=== PATIENT | male | born 1955 | race Caucasian/White ===

== ENCOUNTER 2017-11-28 11:40 | Emergency (ER) | payer MEDICAID ==
[2017-11-28 12:10] LABS: BASOPHILS # (AUTO) 0.1 10^3/uL (0.0-0.1); BASOPHILS % (AUTO) 0.9 %; EOSINOPHILS # (AUTO) 0.3 10^3/uL (0.0-0.7); EOSINOPHILS % (AUTO) 3.6 %; HGB - HEMOGLOBIN 14.3 g/dL (14.0-18.0); LYMPHOCYTES # (AUTO) 1.1 10^3/uL (1.5-3.5); LYMPHOCYTES % (AUTO) 15.2 %; MEAN CORPUSCULAR HGB CONC 33.5 g/dL (32.0-36.0); MEAN CORPUSCULAR VOLUME 83.8 fL (80.0-94.0); MEAN PLATELET VOLUME 7.6 fL (7.4-11.4); MONOCYTES % (AUTO) 13.5 %; NEUTROPHILS # (AUTO) 4.9 10^3/uL (1.5-6.6); NEUTROPHILS % (AUTO) 66.8 %; PLT - PLATELET COUNT 201 10^3/uL (130-450); RED CELL DISTRIBUTION WIDTH 14.4 % (12.0-15.0); WHITE BLOOD COUNT 7.3 x10^3/uL (4.8-10.8)
[2017-11-28] MEDS ORDERED: SODIUM CHLORIDE 0.9% 1,000 ML IV ONE ×3 (12:15→14:19)
[2017-11-28 12:23] LABS: ALBUMIN 4.4 g/dL (3.2-5.5); ALBUMIN/GLOBULIN RATIO 1.5 (1.0-2.2); BILIRUBIN,TOTAL 0.4 mg/dL (0.2-1.0); CALCIUM 9.4 mg/dL (8.5-10.3); CREATININE 0.9 mg/dL (0.6-1.2); TOTAL PROTEIN 7.4 g/dL (6.7-8.2)
[2017-11-28] MEDS ORDERED: IPRATROPIUM/ALBUTEROL 3 ML NEB INH STA (12:56)
--- NOTE | 2017-11-28 13:10 | XRAY Report ---
EXAM: CHEST RADIOGRAPHY EXAM DATE: 11/28/2017 12:47 PM. CLINICAL HISTORY: Soa, dizzy, . COMPARISON: None. TECHNIQUE: 2 views. FINDINGS: Lungs/Pleura: No focal opacities evident. No pleural effusion. No pneumothorax. Normal volumes. Mediastinum: Heart and mediastinal contours are unremarkable. Other: None. IMPRESSION: No focal consolidation. [facility] Referring Provider Line: [phone] SITE ID: [id number]
--- NOTE | 2017-11-28 13:10 | XRAY Preliminary Report ---
Exam: XR CHEST 2 VIEW X-RAY IMPRESSION: No focal consolidation. [facility] SITE ID: [id number]
--- NOTE | 2017-11-28 13:11 | ED Physician Documentation ---
PD HPI URI - Stated complaint Stated Complaint: PASSING OUT/LOW BP - Chief complaint Chief Complaint: Cardiac - History obtained from History obtained from: Patient - History of Present Illness Timing - onset: How many days ago (2) Timing duration: Days (2) Timing details: Gradual onset Pain level max: 0 Pain level now: 0 Associated symptoms: Fever, Chills, Sweats, Nasal congestion, Rhinorrhea, Productive cough (green/yellow), Hemoptysis (mild) Contributing factors: Sick contact Improves by: Rest Worsened by: Activity, Breathing Similar symptoms before: Diagnosis ("walking pneumonia") Recently seen: Not recently seen - Additional information Additional information: Patient states that he has not been sleeping at all for the past 2 nights and feels like he is "passing out". What he actually means is that he is falling asleep frequently during the day over the past 2 days. Feeling very fatigued. He is not actually having syncopal events. Review of Systems Constitutional: reports: Fever, Chills, Fatigue, Sweats Ears: denies: Ear pain Nose: denies: Rhinorrhea / runny nose, Congestion Throat: denies: Sore throat Cardiac: denies: Chest pain / pressure Respiratory: denies: Cough GI: denies: Nausea, Vomiting, Diarrhea : denies: Dysuria Skin: denies: Rash Musculoskeletal: denies: Neck pain, Back pain Neurologic: denies: Focal weakness, Numbness, Headache PD PAST MEDICAL HISTORY - Past Medical History Past Medical History: No - Past Surgical History Past Surgical History: No - Present Medications Home Medications: Ambulatory Orders Medication Instructions Recorded Confirmed Albuterol Sulf [Ventolin Hfa 1 - 2 puffs INH Q4HR PRN #1 inhaler 11/28/17 Inhaler] Hydrocodone/Chlorphen P-Stirex 5 ml PO BID PRN #90 ml 11/28/17 [Hydrocodone-Chlorphen ER Susp] - Allergies Allergies/Adverse Reactions: Allergies Allergy/AdvReac Type Severity Reaction Status Date / Time Penicillins Allergy Unknown Verified 11/28/17 13:06 - Social History Does the pt smoke?: No Smoking Status: Never smoker Does the pt drink ETOH?: No Substance Use and Type: Marijuana PD ED PE NORMAL - Vitals Vital signs reviewed: Yes - General General: Alert and oriented X 3, No acute distress - HEENT HEENT: Ears normal, Pharynx benign, Other (Dry lips and tongue) - Neck Neck: Supple, no meningeal sign - Cardiac Cardiac: RRR - Respiratory Respiratory: No respiratory distress, Other (Diminished breath sounds bilaterally) - Abdomen Abdomen: Soft, Non tender, Non distended - Derm Derm: Warm and dry - Extremities Extremities: No edema, No calf tenderness / cord - Neuro Neuro: Alert and oriented X 3 - Psych Psych: Normal mood, Normal affect Results - Vitals Vitals: Vital Signs - 24 hr 11/28/17 11/28/17 11/28/17 11:42 13:30 15:07 Temperature 36.5 C Heart Rate 91 68 81 Respiratory 18 18 21 Rate Blood Pressure 148/78 H 150/76 H O2 Saturation 98 98 Oxygen O2 Source Room air - EKG (time done) 1202 Rate: Rate (enter#) (74) Rhythm: NSR [place]: Normal Intervals: Normal AR QRS: Normal Ischemia: Normal ST segments Computer interpretation: Agree with computer - Labs Labs: Laboratory Tests 11/28/17 11/28/17 11/28/17 12:06 12:06 12:06 WBC 7.3 RBC 5.10 Hgb 14.3 Hct 42.7 MCV 83.8 MCH 28.0 MCHC 33.5 RDW 14.4 Plt Count 201 MPV 7.6 Neut # 4.9 Lymph # 1.1 L [place] # 1.0 Eos # 0.3 Baso # 0.1 Absolute Nucleated RBC 0.00 Nucleated RBC % 0.0 Sodium 137 Potassium 3.8 Chloride 104 Carbon Dioxide 21 Anion Gap 12.0 BUN 15 Creatinine 0.9 Estimated GFR (MDRD) 86 L Glucose 109 H Calcium 9.4 Total Bilirubin 0.4 AST 25 ALT 17 Alkaline Phosphatase 66 Troponin I < 0.04 Total Protein 7.4 Albumin 4.4 Globulin 3.0 Albumin/Globulin Ratio 1.5 Lipase 17 L Influenza A (Rapid) Influenza B (Rapid) Influenza Types A,B Ag 11/28/17 13:15 WBC RBC Hgb Hct MCV MCH MCHC RDW Plt Count MPV Neut # Lymph # [place] # Eos # Baso # Absolute Nucleated RBC Nucleated RBC % Sodium Potassium Chloride Carbon Dioxide Anion Gap BUN Creatinine Estimated GFR (MDRD) Glucose Calcium Total Bilirubin AST ALT Alkaline Phosphatase Troponin I Total Protein Albumin Globulin Albumin/Globulin Ratio Lipase Influenza A (Rapid) Negative Influenza B (Rapid) Negative Influenza Types A,B Ag - - Rads (name of study) cxr Radiology: Prelim report reviewed, EMP read contemporaneously, See rad report ( No acute disease) PD MEDICAL DECISION MAKING - ED course Complexity details: reviewed results, re-evaluated patient, considered differential, d/w patient ED course: Patient is a 62-year-old male who presents to the emergency department with what appears to be a viral syndrome. Feels better after nebulizer treatment and IV fluids. Ambulating without difficulty. He has not been sleeping well the past few days and so has been having excessive daytime sleepiness. Has not actually had any syncopal events. We will continue supportive care and follow- up with his doctor. He is well-appearing, nontoxic. No acute findings on telemetry or EKG. Patient counseled regarding signs and symptoms for which I believe and urgent re-evaluation would be necessary. Patient with good understanding of and agreement to plan and is comfortable going home at this time This document was made in part using voice recognition software. While efforts are made to proofread this document, sound alike and grammatical errors may occur. Departure - Departure Disposition: 01 Home, Self Care Clinical Impression: Viral syndrome Condition: Good Instructions: ED Viral Syndrome Follow-Up: Nhi Linares ARNP [Primary Care Provider] - Within 1 week (for recheck) Prescriptions: Albuterol Sulf [Ventolin Hfa Inhaler] 1 - 2 puffs INH Q4HR PRN #1 inhaler PRN Reason: Shortness Of Air/Wheezing Hydrocodone/Chlorphen P-Stirex [Hydrocodone-Chlorphen ER Susp] 5 ml PO BID PRN # 90 ml PRN Reason: Cough Comments: Return if you worsen. Drink plenty of fluids and rest. Do not drink alcohol or drive while on narcotic pain medicine. Note that many narcotic pain relievers also contain tylenol/acetaminophen. Please ensure that your total dose of acetaminophen from all sources does not exceed 3 grams (3000mg) per day. You may constipated on this medication, take a stool softener such as "Colace" twice a day while you are on it. Also recommend a hvog-wko-godsann laxative such as senna or MiraLAX any day that you do not have a bowel movement. If you received narcotic pain medication in the emergency department, do not drive or operate machinery for the next 24 hours. Discharge Date/Time: 11/28/17 15:09
[2017-11-28 15:08] VITALS: BP 150/76
== END 2017-11-28 15:09 | disposition home or self-care (01) ==
LOC: ED 11:40
DX: B34.9 Viral infection, unspecified (principal)
CPT/HCPCS: 36415; 71046; 80053; 83690; 84484; 85025; 87275; 87276; 93005; 94640; 96360; 99284

== ENCOUNTER 2018-09-18 13:21 | Emergency (ER) | payer MEDICAID ==
[2018-09-18] MEDS ORDERED: PROPARACAINE 0.5% OPHTH DROPS 15 ML EACHEYE STA (13:34)
--- NOTE | 2018-09-18 13:36 | ED Physician Documentation ---
PD HPI OPHTHO - Stated complaint Stated Complaint: LT EYE PX - Chief complaint Chief Complaint: Heent - History obtained from History obtained from: Patient - History of Present Illness Timing - onset: Other (Either yesterday or a few days ago he thinks something blew up in his eye and he has had increasing pain today without visual deficit.) Similar symptoms before: Other (He has a history of "high eye pressures" although he denies a specific history of glaucoma. He was on drops for this, he does not know which one. He ran out recently. The high eye pressure was actual ly in the right eye, not the left.) Review of Systems Ten Systems: 10 systems reviewed and negative Constitutional: denies: Fever, Chills Eyes: reports: Discharge, Irritation. denies: Loss of vision, Decreased vision, Photophobia Ears: denies: Loss of hearing, Ear pain PD PAST MEDICAL HISTORY - Past Surgical History Past Surgical History: No - Present Medications Home Medications: Ambulatory Orders Medication Instructions Recorded Confirmed Albuterol Sulf [Ventolin Hfa 1 - 2 puffs INH Q4HR PRN #1 inhaler 11/28/17 Inhaler] Hydrocodone/Chlorphen P-Stirex 5 ml PO BID PRN #90 ml 11/28/17 [Hydrocodone-Chlorphen ER Susp] - Allergies Allergies/Adverse Reactions: Allergies Allergy/AdvReac Type Severity Reaction Status Date / Time Penicillins Allergy Unknown Verified 11/28/17 13:06 Tetracyclines Allergy Itching Verified 09/18/18 13:30 - Social History Does the pt smoke?: No Smoking Status: Never smoker Does the pt drink ETOH?: No PD ED PE NORMAL - Vitals Vital signs reviewed: Yes - General General: Alert and oriented X 3, No acute distress - HEENT HEENT: PERRL, EOMI, Other (Conjunctiva is quite red on the left. There is no flurescein uptake, Dennis-Pen on the left is 52.) - Neck Neck: Supple, no meningeal sign, No bony TTP - Cardiac Cardiac: RRR, No murmur - Respiratory Respiratory: No respiratory distress, Clear bilaterally - Abdomen Abdomen: Soft, Non tender - Back Back: No CVA TTP, No spinal TTP - Derm Derm: Normal color, Warm and dry - Extremities Extremities: No edema, No calf tenderness / cord - Neuro Neuro: Alert and oriented X 3, Normal speech - Psych Psych: Normal mood, Normal affect Results - Vitals Vitals: Vital Signs - 24 hr 09/18/18 09/18/18 13:28 15:22 Temperature 36.6 C Heart Rate 75 60 Respiratory 18 16 Rate Blood Pressure 133/75 H 118/71 O2 Saturation 98 98 Oxygen O2 Source Room air - Labs Labs: Laboratory Tests 09/18/18 09/18/18 14:40 14:40 WBC 6.9 RBC 5.28 Hgb 14.8 Hct 44.5 MCV 84.2 MCH 28.0 MCHC 33.3 RDW 14.8 Plt Count 217 MPV 7.7 Neut # (Auto) 3.4 Lymph # (Auto) 2.1 [place] # (Auto) 0.8 Eos # (Auto) 0.5 Baso # (Auto) 0.1 Absolute Nucleated RBC 0.00 Nucleated RBC % 0.0 Sodium 138 Potassium 4.2 Chloride 105 Carbon Dioxide 26 Anion Gap 7.0 BUN 12 Creatinine 0.8 Estimated GFR (MDRD) 98 Glucose 114 H Calcium 8.8 Total Bilirubin 0.4 AST 24 ALT 16 Alkaline Phosphatase 73 Total Protein 7.4 Albumin 4.2 Globulin 3.2 Albumin/Globulin Ratio 1.3 Lipase 40 PD MEDICAL DECISION MAKING - ED course ED course: This is a 63-year-old gentleman who presented with what he thought might be a foreign body in the left eye although there was no clear foreign body exposure. His conjunctiva is beet red and he has a history vaguely of high eye pressures in the right eye that he was on drops for but he does not know what. He has alarmingly high pressures in the left in the left eye and the case was discussed by phone with Dr. Delaney, Ophthalmology at [facility] which is the closest facility with ophthalmology cone cleaner that we could find. His recommendation was to transfer him but prior to transfer we need to start some medications to bring his pressure down. He recommended Cosopt, Brimonidine, and latanoprost, 1 drop each every 5 minutes x3 and then rechecking his pressure. He also recommended 500 mg of p.o. Diamox. If after these interventions his pressure was still greater than 40, then he recommended IV mannitol. He accepts the patient in transfer for a higher level of care. The above interventions were done as recommended, and on recheck at 3:08 PM his pressure in the right eye was 16 and on the left was 20. I called Eul[facility] back, I wonder if the initial readings were erroneous given how big of a drop this was. I did speak with him again and he said although it is unlikely it is possible that that is from the medications and they would still like to see him today. Departure - Departure Disposition: 02 Transfer Acute Care [facility] Clinical Impression: Glaucoma Qualifiers: Glaucoma type: unspecified Laterality: bilateral Qualified Code(s): H40.9 - Unspecified glaucoma Condition: Serious
[2018-09-18] MEDS ORDERED: BRIMONIDINE 0.2% OPHTH DROPS 5 ML LEFTEYE STA (14:24)
[2018-09-18] MEDS ORDERED: LATANOPROST 0.005% OPHTH DROPS LEFTEYE STA (14:24)
[2018-09-18] MEDS ORDERED: DORZOLAMIDE/TIMOLOL OPHTH DROPS LEFTEYE STA (14:27)
[2018-09-18] MEDS ORDERED: acetaZOLAMIDE 250 MG TABLET PO STA (14:28)
[2018-09-18 14:49] LABS: BASOPHILS # (AUTO) 0.1 10^3/uL (0.0-0.1); BASOPHILS % (AUTO) 0.8 %; EOSINOPHILS # (AUTO) 0.5 10^3/uL (0.0-0.7); EOSINOPHILS % (AUTO) 6.7 %; HGB - HEMOGLOBIN 14.8 g/dL (14.0-18.0); LYMPHOCYTES # (AUTO) 2.1 10^3/uL (1.5-3.5); LYMPHOCYTES % (AUTO) 30.8 %; MEAN CORPUSCULAR HGB CONC 33.3 g/dL (32.0-36.0); MEAN CORPUSCULAR VOLUME 84.2 fL (80.0-94.0); MEAN PLATELET VOLUME 7.7 fL (7.4-11.4); MONOCYTES # (AUTO) 0.8 10^3/uL (0.0-1.0); MONOCYTES % (AUTO) 11.9 %; NEUTROPHILS # (AUTO) 3.4 10^3/uL (1.5-6.6); NEUTROPHILS % (AUTO) 49.8 %; PLT - PLATELET COUNT 217 10^3/uL (130-450); RED BLOOD COUNT 5.28 10^6/uL (4.70-6.10); RED CELL DISTRIBUTION WIDTH 14.8 % (12.0-15.0); WHITE BLOOD COUNT 6.9 x10^3/uL (4.8-10.8)
[2018-09-18 14:59] LABS: ALBUMIN 4.2 g/dL (3.2-5.5); ALBUMIN/GLOBULIN RATIO 1.3 (1.0-2.2); BILIRUBIN,TOTAL 0.4 mg/dL (0.2-1.0); CALCIUM 8.8 mg/dL (8.5-10.3); CREATININE 0.8 mg/dL (0.6-1.2); TOTAL PROTEIN 7.4 g/dL (6.7-8.2)
[2018-09-18 15:22] VITALS: BP 118/71
== END 2018-09-18 16:03 | disposition short-term general hospital (02) ==
LOC: ED 13:21
DX: H40.9 Unspecified glaucoma (principal)
CPT/HCPCS: 36415; 80053; 83690; 85025; 99283; 99284; A9270; J3490

== ENCOUNTER 2018-09-18 16:05 | Outpatient (CLI) | payer MEDICAID | END 2018-09-18 16:06 | disposition short-term general hospital (02) | LOC: EMS 16:05 | PROVIDERS: ATTEND Surgery | DX: H57.12 Ocular pain, left eye (principal) | CPT/HCPCS: A0170; A0425; A0428 ==

== ENCOUNTER 2018-10-13 06:29 | Emergency (ER) | payer MEDICAID ==
[2018-10-13 06:47] LABS: BASOPHILS % (AUTO) 0.5 %; EOSINOPHILS # (AUTO) 0.3 10^3/uL (0.0-0.7); EOSINOPHILS % (AUTO) 3.7 %; LYMPHOCYTES # (AUTO) 1.8 10^3/uL (1.5-3.5); LYMPHOCYTES % (AUTO) 19.6 %; MEAN CORPUSCULAR HEMOGLOBIN 27.5 pg (27.0-31.0); MEAN CORPUSCULAR HGB CONC 32.7 g/dL (32.0-36.0); MEAN CORPUSCULAR VOLUME 84.1 fL (80.0-94.0); MEAN PLATELET VOLUME 7.5 fL (7.4-11.4); MONOCYTES # (AUTO) 1.1 10^3/uL (0.0-1.0); MONOCYTES % (AUTO) 11.6 %; NEUTROPHILS # (AUTO) 5.9 10^3/uL (1.5-6.6); NEUTROPHILS % (AUTO) 64.6 %; PLT - PLATELET COUNT 214 10^3/uL (130-450); RED BLOOD COUNT 5.46 10^6/uL (4.70-6.10); RED CELL DISTRIBUTION WIDTH 14.4 % (12.0-15.0); WHITE BLOOD COUNT 9.1 x10^3/uL (4.8-10.8)
[2018-10-13] MEDS ORDERED: KETOROLAC 30 MG/ML VIAL IVP STA (06:54)
--- NOTE | 2018-10-13 06:57 | ED Physician Documentation ---
<Rigo Sebastian - Last Filed: 10/13/18 06:54> PD HPI CHEST PAIN - Stated complaint Stated Complaint: CHEST PX/WEAK - Chief complaint Chief Complaint: Cardiac - History obtained from History obtained from: Patient - History of Present Illness Timing - onset: How many days ago (1 1/2) Timing - onset during: Light activity (denies direct injury) Timing - duration: Days Timing - details: Gradual onset, Waxing and waning Quality: Pressure, Aching, Throbbing, Pain. No: Tearing Location: Right chest Radiation: Back Worsened by: Inspiration, Movement, Palpation (right lateral lower ribs) Associated symptoms: No: Shortness of air, Nausea, Feeling faint / dizzy Similar symptoms before: No diagnosis (had this about a year ago after lifting heavy, and it took awhile to heal. No particular injury with onset this time.) Recently seen: Not recently seen - Additional information Additional information: 63-year-old male previously healthy with a history of glaucoma has developed pain in the chest wall bilaterally on the lower ribs. This began a little more than 1 week ago and has peaked this morning. His pain is bad enough that he is come to the emergency department. He denies any cough congestion or fever he did have some postnasal drainage last week and he is recently been seen for glaucoma and started on drops for the glaucoma. At that time he had a dramatic problem with pressure in the left eye. PD PAST MEDICAL HISTORY - Past Surgical History Past Surgical History: No - Present Medications Home Medications: Ambulatory Orders Medication Instructions Recorded Confirmed Albuterol Sulf [Ventolin Hfa 1 - 2 puffs INH Q4HR PRN #1 inhaler 11/28/17 Inhaler] Hydrocodone/Chlorphen P-Stirex 5 ml PO BID PRN #90 ml 11/28/17 [Hydrocodone-Chlorphen ER Susp] Albuterol Sulf [Ventolin Hfa 1 - 2 puffs INH Q4HR PRN #1 inhaler 10/13/18 Inhaler] Cefdinir 300 mg PO BID #20 capsule 10/13/18 predniSONE [Deltasone] 10 mg PO ONCE #26 tablet 10/13/18 - Allergies Allergies/Adverse Reactions: Allergies Allergy/AdvReac Type Severity Reaction Status Date / Time Penicillins Allergy Unknown Verified 10/13/18 06:34 Tetracyclines Allergy Itching Verified 10/13/18 06:34 - Social History Does the pt smoke?: No Smoking Status: Never smoker Does the pt drink ETOH?: No Results - Vitals Vitals: Vital Signs - 24 hr 10/13/18 10/13/18 10/13/18 06:34 06:44 07:30 Temperature 37.4 C Heart Rate 69 78 68 Respiratory 20 17 18 Rate Blood Pressure 141/88 H 129/94 H 140/87 H O2 Saturation 99 100 97 10/13/18 10/13/18 08:14 08:30 Temperature Heart Rate 64 75 Respiratory 18 18 Rate Blood Pressure 142/80 H O2 Saturation 96 Oxygen O2 Source Room air - Labs Labs: Laboratory Tests 10/13/18 10/13/18 10/13/18 06:40 06:40 06:40 WBC 9.1 RBC 5.46 Hgb 15.0 Hct 45.9 MCV 84.1 MCH 27.5 MCHC 32.7 RDW 14.4 Plt Count 214 MPV 7.5 Neut # (Auto) 5.9 Lymph # (Auto) 1.8 [place] # (Auto) 1.1 H Eos # (Auto) 0.3 Baso # (Auto) 0.0 Absolute Nucleated RBC 0.00 Nucleated RBC % 0.0 Sodium 135 Potassium 3.8 Chloride 103 Carbon Dioxide 22 Anion Gap 10.0 BUN 13 Creatinine 0.8 Estimated GFR (MDRD) 98 Glucose 107 H Calcium 9.4 Total Bilirubin 0.8 AST 24 ALT 17 Alkaline Phosphatase 73 Troponin I < 0.04 B-Natriuretic Peptide Total Protein 7.5 Albumin 4.2 Globulin 3.3 Albumin/Globulin Ratio 1.3 Lipase 94 H 10/13/18 07:18 WBC RBC Hgb Hct MCV MCH MCHC RDW Plt Count MPV Neut # (Auto) Lymph # (Auto) [place] # (Auto) Eos # (Auto) Baso # (Auto) Absolute Nucleated RBC Nucleated RBC % Sodium Potassium Chloride Carbon Dioxide Anion Gap BUN Creatinine Estimated GFR (MDRD) Glucose Calcium Total Bilirubin AST ALT Alkaline Phosphatase Troponin I B-Natriuretic Peptide 22 Total Protein Albumin Globulin Albumin/Globulin Ratio Lipase PD MEDICAL DECISION MAKING - ED course ED course: 63-year-old male with bilateral lower rib pain has some inspiratory and expiratory leg wheezes and I suspect he has some reactive airway disease associated with this. He has minimal inflammation of the right TM and has had an issue previously with otitis times. Here in the emerge department is administered Toradol and dexamethasone as well as a DuoNeb treatment and we will place him on some antibiotic. He has allergy to pcn and he is uncertain if he can take amoxicillin and he is placed on cefdinir. Departure - Departure Disposition: 01 Home, Self Care Clinical Impression: Reactive airway disease Qualifiers: Asthma severity: mild Asthma persistence: intermittent Asthma complication type: with acute exacerbation Qualified Code(s): J45.21 - Mild intermittent asthma with (acute) exacerbation Otitis media Qualifiers: Otitis media type: suppurative Chronicity: acute Laterality: right Recurrence: not specified as recurrent Spontaneous tympanic membrane rupture: without spontaneous rupture Qualified Code(s): H66.001 - Acute suppurative otitis media without spontaneous rupture of ear drum, right ear Condition: Stable Instructions: ED Reactive Airway Disease, ED Otitis Media Acute Adult Follow-Up: Nhi Linares ARNP [Primary Care Provider] - Prescriptions: Albuterol Sulf [Ventolin Hfa Inhaler] 1 - 2 puffs INH Q4HR PRN #1 inhaler PRN Reason: Shortness Of Air/Wheezing Cefdinir 300 mg PO BID #20 capsule predniSONE [Deltasone] 10 mg PO ONCE #26 tablet Forms: Activity restrictions <Rigo Warner - Last Filed: 10/13/18 08:57> PD HPI CHEST PAIN - Additional information Additional information: 63-year-old male previously healthy with a history of glaucoma has developed pain in the chest wall bilaterally on the lower ribs. This began a little more than 1 week ago and has peaked this morning. His pain is bad enough that he is come to the emergency department. He denies any cough congestion or fever he did have some postnasal drainage last week and he is recently been seen for glaucoma and started on drops for the glaucoma. At that time he had a dramatic problem with pressure in the left eye. Review of Systems Constitutional: reports: Fatigue. denies: Fever, Chills Eyes: denies: Decreased vision Ears: denies: Ear pain Nose: reports: Congestion. denies: Rhinorrhea / runny nose Throat: denies: Sore throat Cardiac: reports: Chest pain / pressure. denies: Palpitations, Pedal edema, Calf pain Respiratory: denies: Dyspnea, Cough GI: denies: Abdominal Pain, Nausea, Vomiting : denies: Dysuria, Frequency Musculoskeletal: reports: Back pain. denies: Neck pain, Extremity pain PD ED PE NORMAL - Vitals Vital signs reviewed: Yes (hypertensive ) - General General: Alert and oriented X 3, No acute distress, Well developed/nourished - HEENT HEENT: Atraumatic, PERRL, EOMI, Other (The right TM is inflamed centrally with distortion of the landmarks. The left TM is surgically distorted and does not appear inflamed. The mucous membranes are clear. ) - Neck Neck: Supple, no meningeal sign, No bony TTP - Cardiac Cardiac: RRR, No murmur - Respiratory Respiratory: No respiratory distress, Clear bilaterally, Other (There is tenderness to the lateral chest wall worse on the right. ) - Abdomen Abdomen: Soft, Non tender - Back Back: No CVA TTP, No spinal TTP, Other (tenderness is definately over the ribs and not over the abdomen. 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, No motor deficit, No sensory deficit, Normal speech Eye Opening: Spontaneous Motor: Obeys Commands Verbal: Oriented GCS Score: 15 - Psych Psych: Normal mood, Normal affect Results - Vitals Vitals: Vital Signs - 24 hr 10/13/18 10/13/18 10/13/18 06:34 06:44 07:30 Temperature 37.4 C Heart Rate 69 78 68 Respiratory 20 17 18 Rate Blood Pressure 141/88 H 129/94 H 140/87 H O2 Saturation 99 100 97 10/13/18 10/13/18 08:14 08:30 Temperature Heart Rate 64 75 Respiratory 18 18 Rate Blood Pressure 142/80 H O2 Saturation 96 Oxygen O2 Source Room air - EKG (time done) 0635 Rate: Rate (enter#) (68) Rhythm: NSR Ischemia: Normal ST segments Compare to prior EKG: Unchanged from prior EKG (SPT 11-28-17 no changes ) Computer interpretation: Agree with computer - Labs Labs: Laboratory Tests 10/13/18 10/13/18 10/13/18 06:40 06:40 06:40 WBC 9.1 RBC 5.46 Hgb 15.0 Hct 45.9 MCV 84.1 MCH 27.5 MCHC 32.7 RDW 14.4 Plt Count 214 MPV 7.5 Neut # (Auto) 5.9 Lymph # (Auto) 1.8 [place] # (Auto) 1.1 H Eos # (Auto) 0.3 Baso # (Auto) 0.0 Absolute Nucleated RBC 0.00 Nucleated RBC % 0.0 Sodium 135 Potassium 3.8 Chloride 103 Carbon Dioxide 22 Anion Gap 10.0 BUN 13 Creatinine 0.8 Estimated GFR (MDRD) 98 Glucose 107 H Calcium 9.4 Total Bilirubin 0.8 AST 24 ALT 17 Alkaline Phosphatase 73 Troponin I < 0.04 B-Natriuretic Peptide Total Protein 7.5 Albumin 4.2 Globulin 3.3 Albumin/Globulin Ratio 1.3 Lipase 94 H 10/13/18 07:18 WBC RBC Hgb Hct MCV MCH MCHC RDW Plt Count MPV Neut # (Auto) Lymph # (Auto) [place] # (Auto) Eos # (Auto) Baso # (Auto) Absolute Nucleated RBC Nucleated RBC % Sodium Potassium Chloride Carbon Dioxide Anion Gap BUN Creatinine Estimated GFR (MDRD) Glucose Calcium Total Bilirubin AST ALT Alkaline Phosphatase Troponin I B-Natriuretic Peptide 22 Total Protein Albumin Globulin Albumin/Globulin Ratio Lipase - Rads (name of study) chest 1 view Radiology: Prelim report reviewed (Impression: 1. No evidence for acute cardiopulmonary process), EMP read indepedently, See rad report Procedures - IVC sono (time) 0750 Bedside IVC sono: IVC measures (cm) (1.74), Euvolemia PD MEDICAL DECISION MAKING - ED course Complexity details: reviewed old records, reviewed results, re-evaluated patient, considered differential, d/w patient ED course: 63-year-old male with bilateral lower rib pain has some inspiratory and expiratory leg wheezes and I suspect he has some reactive airway disease associated with this. He has minimal inflammation of the right TM and has had an issue previously with otitis times. Here in the emerge department is administered Toradol and dexamethasone as well as a DuoNeb treatment and we will place him on some antibiotic. He has allergy to pcn and he is uncertain if he can take amoxicillin and he is placed on cefdinir.
[2018-10-13 07:00] LABS: ALBUMIN 4.2 g/dL (3.2-5.5); ALBUMIN/GLOBULIN RATIO 1.3 (1.0-2.2); BILIRUBIN,TOTAL 0.8 mg/dL (0.2-1.0); CALCIUM 9.4 mg/dL (8.5-10.3); CREATININE 0.8 mg/dL (0.6-1.2); TOTAL PROTEIN 7.5 g/dL (6.7-8.2)
--- NOTE | 2018-10-13 07:08 | XRAY Report ---
Reason: chest pain Procedure Date: 10/13/2018 Accession Number: [id number] / [id number] Procedure: XR - Chest 1 View X-Ray CPT Code: 55360 FULL RESULT: EXAM: CHEST RADIOGRAPHY EXAM DATE: 10/13/2018 07:00 AM. CLINICAL HISTORY: Chest pain. COMPARISON: CHEST 2 VIEW 11/28/2017 12:28 PM. TECHNIQUE: 1 view. FINDINGS: Lungs/Pleura: Unchanged linear basilar opacities that likely reflect atelectasis. No other new consolidation seen. No evidence of pleural effusion or pneumothorax. Mediastinum: Stable heart size and mediastinum. 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 IMPRESSION: 1. No evidence for acute cardiopulmonary process. [facility]
[2018-10-13] MEDS ORDERED: DEXAMETHASONE 10 MG/ML VIAL IVP STA (07:45)
[2018-10-13] MEDS ORDERED: IPRATROPIUM/ALBUTEROL 3 ML NEB INH STA (07:54)
[2018-10-13 09:29] VITALS: BP 128/80
== END 2018-10-13 09:30 | disposition home or self-care (01) ==
LOC: ED 06:29
DX: J45.21 Mild intermittent asthma with (acute) exacerbation (principal); H66.001 Acute suppurative otitis media without spontaneous rupture of ear drum, right ear; H40.9 Unspecified glaucoma
CPT/HCPCS: 36415; 71045; 80053; 83690; 83880; 84484; 85025; 93005; 94640; 96374; 96375; 99283; 99284

== ENCOUNTER 2018-11-02 09:51 | Emergency (ER) | payer MEDICAID ==
[2018-11-02 09:59] VITALS: BP 126/83
[2018-11-02] MEDS ORDERED: KETOROLAC 60 MG/2 ML VIAL IM STA (10:45)
--- NOTE | 2018-11-02 10:47 | ED Physician Documentation ---
History of Present Illness - Stated complaint Stated Complaint: NECK PX/NAUSEA UNABLE TO EAT AND DRINK - Chief complaint Chief Complaint: General - History obtained from History obtained from: Patient - History of Present Illness Timing: How many days ago (2) Pain level max: 8 Pain level now: 8 - Additonal information Additional information: 63-year-old male presents to the emergency department with neck pain for the past 2 days. Worse with movement and better with rest. Has been taking aspirin without relief. Had similar symptoms approximately 2 years ago after a neck injury at work. Has not had any fevers. No vomiting. Review of Systems Constitutional: denies: Fever, Chills Eyes: denies: Photophobia Throat: denies: Sore throat Respiratory: denies: Cough GI: denies: Abdominal Pain, Nausea, Vomiting, Diarrhea Skin: denies: Rash Musculoskeletal: denies: Back pain Neurologic: denies: Focal weakness, Numbness, Headache PD PAST MEDICAL HISTORY - Past Medical History Past Medical History: No - Past Surgical History Past Surgical History: No - Present Medications Home Medications: Ambulatory Orders Medication Instructions Recorded Confirmed Hydrocodone/Chlorphen P-Stirex 5 ml PO BID PRN #90 ml 11/28/17 [Hydrocodone-Chlorphen ER Susp] Albuterol Sulf [Ventolin Hfa 1 - 2 puffs INH Q4HR PRN #1 inhaler 10/13/18 Inhaler] Cefdinir 300 mg PO BID #20 capsule 10/13/18 predniSONE [Deltasone] 10 mg PO ONCE #26 tablet 10/13/18 Cyclobenzaprine [Flexeril] 10 mg PO TID PRN #20 tablet 11/02/18 Hydrocodone/Acetaminophen 1 - 2 each PO Q6H PRN #14 tablet 11/02/18 [Hydrocodon-Acetaminophen 5-325] Meloxicam [Mobic] 15 mg PO DAILY PRN #20 tablet 11/02/18 - Allergies Allergies/Adverse Reactions: Allergies Allergy/AdvReac Type Severity Reaction Status Date / Time Penicillins Allergy Unknown Verified 11/02/18 09:59 Tetracyclines Allergy Itching Verified 11/02/18 09:59 - Social History Does the pt smoke?: No Smoking Status: Never smoker Does the pt drink ETOH?: No PD ED PE NORMAL - Vitals Vital signs reviewed: Yes - General General: Alert and oriented X 3, No acute distress, Well developed/nourished, Other (Holding his neck midline, and slight flexion) - HEENT HEENT: PERRL, Ears normal, Moist mucous membranes, Pharynx benign, Other (Paraspinal spasm bilaterally paracervical.) - Neck Neck: No bony TTP, No adenopathy - Cardiac Cardiac: RRR, Strong equal pulses - Respiratory Respiratory: No respiratory distress, Clear bilaterally - Back Back: No spinal TTP - Derm Derm: Warm and dry - Neuro Neuro: Alert and oriented X 3, No motor deficit, No sensory deficit - Psych Psych: Normal mood, Normal affect Results - Vitals Vitals: Vital Signs - 24 hr 11/02/18 09:57 Temperature 37.1 C Heart Rate 76 Respiratory 16 Rate Blood Pressure 126/83 H O2 Saturation 98 Oxygen O2 Source Room air PD MEDICAL DECISION MAKING - ED course Complexity details: considered differential, d/w patient ED course: 63-year-old male with paracervical muscle spasm. No evidence of meningitis. No fevers. No evidence of subarachnoid hemorrhage. Will place on muscle relaxants for home and follow-up with his doctor. Neurologically intact. No bony injury. Patient counseled regarding signs and symptoms for which I believe and urgent re-evaluation would be necessary. Patient with good understanding of and agreement to plan and is comfortable going home at this time This document was made in part using voice recognition software. While efforts are made to proofread this document, sound alike and grammatical errors may occur. Departure - Departure Disposition: 01 Home, Self Care Clinical Impression: Neck muscle spasm Condition: Good Instructions: ED Spasm Neck No Injury Follow-Up: Provider,Other [Primary Care Provider] - Within 1 week Prescriptions: Cyclobenzaprine [Flexeril] 10 mg PO TID PRN #20 tablet PRN Reason: Spasms Hydrocodone/Acetaminophen [Hydrocodon-Acetaminophen 5-325] 1 - 2 each PO Q6H PRN #14 tablet PRN Reason: pain Meloxicam [Mobic] 15 mg PO DAILY PRN #20 tablet PRN Reason: neck pain Comments: Use the medications as prescribed. Return if you worsen. Follow-up with your doctor in 1 week if not better. Do not drive or operate heavy machinery while taking Flexeril. Do not drink alcohol or drive while on narcotic pain medicine. Note that many narcotic pain relievers also contain tylenol/acetaminophen. Please ensure that your total dose of acetaminophen from all sources does not exceed 3 grams (3000mg) per day. You may constipated on this medication, take a stool softener such as "Colace" twice a day while you are on it. Also recommend a zvel-nde-elkxtus laxative such as senna or MiraLAX any day that you do not have a bowel movement. If you received narcotic pain medication in the emergency department, do not drive or operate machinery for the next 24 hours. Forms: Activity restrictions Discharge Date/Time: 11/02/18 11:23
== END 2018-11-02 11:23 | disposition home or self-care (01) ==
LOC: ED 09:51
DX: M62.838 Other muscle spasm (principal)
CPT/HCPCS: 96372; 99283

== ENCOUNTER 2018-12-02 07:46 | Emergency (ER) | payer MEDICAID ==
[2018-12-02] MEDS ORDERED: IBUPROFEN 800 MG TABLET PO STA (08:03)
--- NOTE | 2018-12-02 08:08 | ED Physician Documentation ---
PD HPI URI - Stated complaint Stated Complaint: SOA - Chief complaint Chief Complaint: Resp - History obtained from History obtained from: Patient - History of Present Illness Timing - onset: Yesterday Timing details: Gradual onset Associated symptoms: Fever, Chills, Productive cough Similar symptoms before: Diagnosis (asthmatic bronchitis) - Additional information Additional information: The patient is a 63-year-old male who presents with productive cough and shortness of breath that started yesterday. He reports generalized myalgias, fever and chills, and headache. He denies sore throat, vomiting or diarrhea. He denies history of cigarette smoking. He reports history of similar symptoms in the past with asthmatic bronchitis. He has been prescribed an inhaler in the past, but currently does not have any inhaler medication. Review of Systems Constitutional: reports: Fever, Chills, Myalgias, Fatigue Eyes: denies: Irritation Ears: denies: Ear pain Nose: reports: Congestion Throat: denies: Sore throat Cardiac: reports: Chest pain / pressure (Mild lower chest discomfort with coughing.) Respiratory: reports: Dyspnea, Cough GI: reports: Nausea. denies: Abdominal Pain, Vomiting, Diarrhea : denies: Dysuria Skin: denies: Rash Musculoskeletal: denies: Back pain, Extremity swelling Neurologic: reports: Headache. denies: Focal weakness, Numbness PD PAST MEDICAL HISTORY - Past Medical History Past Medical History: Yes Cardiovascular: None Respiratory: Asthma Neuro: None Endocrine/Autoimmune: None GI: None : None HEENT: None Psych: None Musculoskeletal: None Derm: None - Past Surgical History Past Surgical History: Yes Ortho: Arthroscopic surgery - Present Medications Home Medications: Ambulatory Orders Medication Instructions Recorded Confirmed Albuterol Sulf [Ventolin Hfa 1 - 2 puffs INH Q4HR PRN #1 inhaler 10/13/18 Inhaler] Albuterol Sulf [Ventolin Hfa 1 - 2 puffs INH Q4HR PRN #1 inhaler 12/02/18 Inhaler] Benzonatate [Tessalon Perle] 100 - 200 mg PO TID PRN #30 capsule 12/02/18 - Allergies Allergies/Adverse Reactions: Allergies Allergy/AdvReac Type Severity Reaction Status Date / Time Penicillins Allergy Unknown Verified 12/02/18 07:54 Tetracyclines Allergy Itching Verified 12/02/18 07:54 - Social History Does the pt smoke?: No Smoking Status: Never smoker Does the pt drink ETOH?: No Does the pt have substance abuse?: No Substance Use and Type: Marijuana - Immunizations Immunizations are current?: No - POLST Patient has POLST: No PD ED PE NORMAL - Vitals Vital signs reviewed: Yes (Borderline systolic hypertension initially.) - General General: Alert and oriented X 3, Well developed/nourished, Other (Appears somewhat fatigued.) - HEENT HEENT: Atraumatic, EOMI, Ears normal, Pharynx benign - Neck Neck: Supple, no meningeal sign, No adenopathy, No JVD - Cardiac Cardiac: RRR, No murmur - Respiratory Respiratory: Clear bilaterally, Other (Cough, without wheezes, rales or rhonchi.) - Abdomen Abdomen: Soft, Non tender - Back Back: No CVA TTP - Derm Derm: No rash - Extremities Extremities: No edema, No calf tenderness / cord - Neuro Neuro: Alert and oriented X 3, No motor deficit, Normal speech Results - Vitals Vitals: Vital Signs - 24 hr 12/02/18 12/02/18 12/02/18 07:48 08:05 09:22 Temperature 36.6 C Heart Rate 89 89 Respiratory 18 18 Rate Blood Pressure 137/82 H 131/74 H 118/76 O2 Saturation 98 99 Oxygen O2 Source Room air - Labs Labs: Laboratory Tests 12/02/18 08:03 Influenza A (Rapid) Negative Influenza B (Rapid) Negative - Rads (name of study) CXR Radiology: Prelim report reviewed, EMP read contemporaneously, See rad report (Normal 2 view chest radiography.) PD MEDICAL DECISION MAKING - ED course Complexity details: reviewed old records, reviewed results, re-evaluated patient, considered differential, d/w patient ED course: The patient's presentation is most consistent with viral upper respiratory infection. His clinical presentation does not suggest meningitis, pneumonitis, otitis media, or acute pharyngitis. Influenza swab is negative. Treatment in the emergency department included administration of Ibuprophen 800 mg orally, and Dexamethasone 10 mg IM. I discussed with him the expected course of illness, symptomatic treatment and outpatient follow-up, as well as potentially worrisome signs or symptoms that should prompt reevaluation in the emergency department. He is being discharged with a prescription for Tessalon. Departure - Departure Disposition: 01 Home, Self Care Clinical Impression: Viral upper respiratory infection Condition: Stable Instructions: ED Upper Resp Infec No Abx Tx Follow-Up: [facility] [Provider Group] Prescriptions: Albuterol Sulf [Ventolin Hfa Inhaler] 1 - 2 puffs INH Q4HR PRN #1 inhaler PRN Reason: Shortness Of Air/Wheezing Benzonatate [Tessalon Perle] 100 - 200 mg PO TID PRN #30 capsule PRN Reason: Cough Comments: Your symptoms are most consistent with a viral upper respiratory infection. Antibiotics are not clinically indicated for this type of viral infection. Treatment should be geared toward managing symptoms: Drink plenty of fluids. Use Tylenol or ibuprofen as needed for fever or discomfort. You can use Tessalon as prescribed if needed for cough. Wash your hands frequently, and cover your cough. Follow up with your primary physician, or return to the emergency department, if not improving within 1-2 weeks. Return to the emergency department if you develop increasing difficulty breathing, or otherwise worsening symptoms.
--- NOTE | 2018-12-02 08:58 | XRAY Report ---
Reason: cough and dyspnea Procedure Date: 12/02/2018 Accession Number: [id number] / [id number] Procedure: XR - Chest 2 View X-Ray CPT Code: 89416 FULL RESULT: EXAM: CHEST RADIOGRAPHY EXAM DATE: 12/02/2018 08:29 AM. CLINICAL HISTORY: Cough and dyspnea. COMPARISON: CHEST 1 VIEW 10/13/2018 6:49 AM CHEST 2 VIEW 11/28/2017 12:28 PM. TECHNIQUE: 2 views. FINDINGS: Lungs/Pleura: No focal opacities evident. No pleural effusion. No pneumothorax. Normal volumes. Mediastinum: Heart and mediastinal contours are unremarkable. Other: None. IMPRESSION: Normal 2-view chest radiography. RADIA
[2018-12-02] MEDS ORDERED: DEXAMETHASONE 10 MG/ML VIAL IM STA (09:01)
[2018-12-02 09:23] VITALS: BP 118/76
== END 2018-12-02 09:34 | disposition home or self-care (01) ==
LOC: ED 07:46
DX: J06.9 Acute upper respiratory infection, unspecified (principal); B97.89 Other viral agents as the cause of diseases classified elsewhere
CPT/HCPCS: 71046; 87275; 87276; 96372; 99283; A9270

== ENCOUNTER 2018-12-04 11:12 | Emergency (ER) | payer MEDICAID ==
[2018-12-04 11:17] VITALS: BP 127/51
--- NOTE | 2018-12-04 12:23 | ED Physician Documentation ---
PD HPI OPHTHO - Stated complaint Stated Complaint: MED REFILL/EYE DROPS - Chief complaint Chief Complaint: Heent - History obtained from History obtained from: Patient - Additional information Additional information: The patient is a 63-year-old male with a history of glaucoma, who presents for a refill of his prescription for latanoprost ophthalmic solution. The pharmacy where his copy machine operator had faxed the prescription does not have the medication. As it is Wednesday, he is not able to get another prescription from his copy machine operator today. He is requesting prescription for the medication so he can take it to a different pharmacy. He reports having slight burning of his eyes, but denies visual impairment, eye pain, headache, or nausea. Review of Systems Constitutional: denies: Fever Eyes: denies: Decreased vision, Photophobia, Discharge Nose: denies: Congestion GI: denies: Nausea Neurologic: denies: Headache PD PAST MEDICAL HISTORY - Past Medical History Cardiovascular: None Respiratory: Asthma Neuro: None Endocrine/Autoimmune: None GI: None : None HEENT: Glaucoma Psych: None Musculoskeletal: None Derm: None - Past Surgical History Past Surgical History: Yes Ortho: Arthroscopic surgery - Present Medications Home Medications: Ambulatory Orders Medication Instructions Recorded Confirmed Albuterol Sulf [Ventolin Hfa 1 - 2 puffs INH Q4HR PRN #1 inhaler 10/13/18 Inhaler] Albuterol Sulf [Ventolin Hfa 1 - 2 puffs INH Q4HR PRN #1 inhaler 12/02/18 Inhaler] Benzonatate [Tessalon Perle] 100 - 200 mg PO TID PRN #30 capsule 12/02/18 Latanoprost 0.005% Ophth Drops 1 drops EACHEYE QPM #1 bottle 12/04/18 [Xalatan Ophth Drops] Latanoprost 0.005% Ophth Drops 40 drops EACHEYE QPM 12/04/18 12/04/18 [Xalatan Ophth Drops] - Allergies Allergies/Adverse Reactions: Allergies Allergy/AdvReac Type Severity Reaction Status Date / Time Penicillins Allergy Unknown Verified 12/04/18 11:18 Tetracyclines Allergy Itching Verified 12/04/18 11:18 - Social History Does the pt smoke?: No Smoking Status: Never smoker Does the pt drink ETOH?: No Does the pt have substance abuse?: No - Immunizations Immunizations are current?: No - POLST Patient has POLST: No PD ED PE NORMAL - Vitals Vital signs reviewed: Yes (normal) - General General: Alert and oriented X 3, Well developed/nourished - HEENT HEENT: Atraumatic, PERRL, EOMI, Other (Conjunctiva clear, anterior chambers clear.) - Respiratory Respiratory: No respiratory distress - Neuro Neuro: Alert and oriented X 3, Normal speech Results - Vitals Vitals: Oxygen O2 Source Room air PD MEDICAL DECISION MAKING - ED course Complexity details: d/w patient ED course: The patient presented for refill of his prescription for latanoprost ophthalmic for treatment of his glaucoma. He is currently asymptomatic, but does not want to miss dosages of his medication. Departure - Departure Disposition: 01 Home, Self Care Clinical Impression: Medication refill, Glaucoma Condition: Stable Instructions: ED Glaucoma Narrow Angle Acute Follow-Up: Memo Allen, OD [Physician No Access] - Prescriptions: Latanoprost 0.005% Ophth Drops [Xalatan Ophth Drops] 1 drops EACHEYE QPM #1 bottle Comments: Take the latanoprost eyedrops as prescribed. Follow-up with your eye doctor as planned. Return to the emergency department if increasing difficulty with your vision, or otherwise worsening symptoms. Discharge Date/Time: 12/04/18 12:44
== END 2018-12-04 12:44 | disposition home or self-care (01) ==
LOC: ED 11:12
DX: H40.9 Unspecified glaucoma (principal); Z76.0 Encounter for issue of repeat prescription
CPT/HCPCS: 99281; 99283

== ENCOUNTER 2019-06-07 14:08 | Emergency (ER) | payer MEDICAID ==
[2019-06-07] MEDS ORDERED: AZITHROMYCIN 250 MG TABLET PO STA (14:52)
[2019-06-07] MEDS ORDERED: IPRATROPIUM/ALBUTEROL 3 ML NEB INH STA (14:52)
--- NOTE | 2019-06-07 14:54 | ED Physician Documentation ---
PD HPI DYSPNEA - Stated complaint Stated Complaint: SOA/CHEST DISCOMFORT - Chief complaint Chief Complaint: Resp - History obtained from History obtained from: Patient - History of Present Illness Timing - onset: Other (63-year-old with history of asthma, he is running low on his inhaler and has had a productive cough for the last 4 days. Of note he has pretty bad glaucoma and therefore usually eschews steroids. Denies chest pain, pedal edema. He has had some subjective fevers.) Review of Systems Ten Systems: 10 systems reviewed and negative Constitutional: reports: Fever, Chills, Fatigue Cardiac: denies: Chest pain / pressure, Palpitations, Pedal edema, Calf pain Respiratory: reports: Dyspnea, Cough PD PAST MEDICAL HISTORY - Past Medical History Past Medical History: Yes Cardiovascular: None Respiratory: Asthma Neuro: None Endocrine/Autoimmune: None GI: None : None HEENT: Glaucoma Psych: None Musculoskeletal: None Derm: None - Past Surgical History Past Surgical History: Yes Ortho: Arthroscopic surgery - Present Medications Home Medications: Ambulatory Orders Medication Instructions Recorded Confirmed Albuterol Sulf [Ventolin Hfa 1 - 2 puffs INH Q4HR PRN #1 inhaler 10/13/18 Inhaler] Albuterol Sulf [Ventolin Hfa 1 - 2 puffs INH Q4HR PRN #1 inhaler 12/02/18 Inhaler] Benzonatate [Tessalon Perle] 100 - 200 mg PO TID PRN #30 capsule 12/02/18 Latanoprost 0.005% Ophth Drops 1 drops EACHEYE QPM #1 bottle 12/04/18 [Xalatan Ophth Drops] Latanoprost 0.005% Ophth Drops 40 drops EACHEYE QPM 12/04/18 12/04/18 [Xalatan Ophth Drops] Albuterol Sulf [Ventolin Hfa 1 - 2 puffs INH Q4HR PRN #1 inhaler 06/07/19 Inhaler] Azithromycin 1 tab PO DAILY #4 tablet 06/07/19 - Allergies Allergies/Adverse Reactions: Allergies Allergy/AdvReac Type Severity Reaction Status Date / Time Penicillins Allergy Unknown Verified 06/07/19 14:10 Tetracyclines Allergy Itching Verified 06/07/19 14:10 - Social History Does the pt smoke?: No Smoking Status: Never smoker Does the pt drink ETOH?: No Does the pt have substance abuse?: No - Immunizations Immunizations are current?: No - POLST Patient has POLST: No PD ED PE NORMAL - Vitals Vital signs reviewed: Yes - General General: Alert and oriented X 3, No acute distress - HEENT HEENT: PERRL, EOMI - Neck Neck: Supple, no meningeal sign, No bony TTP - Cardiac Cardiac: RRR, No murmur - Respiratory Respiratory: No respiratory distress, Other (Nonlabored with mild expiratory wheezing but decent air motion. No focal findings.) - Derm Derm: No rash - Extremities Extremities: No edema, No calf tenderness / cord - Neuro Neuro: Alert and oriented X 3, Normal speech Results - Vitals Vitals: Vital Signs - 24 hr 06/07/19 14:11 Temperature 36.5 C Heart Rate 75 Respiratory 17 Rate Blood Pressure 161/85 H O2 Saturation 97 Oxygen O2 Source Room air - EKG (time done) 1423 Rate: Rate (enter#) (71) Rhythm: NSR [place]: Normal Intervals: Normal NH QRS: Normal Ischemia: Normal ST segments Computer interpretation: Agree with computer PD MEDICAL DECISION MAKING - ED course ED course: Steroids were held given the poorly controlled glaucoma. No evidence of cardiac etiology. Departure - Departure Disposition: 01 Home, Self Care Clinical Impression: Reactive airway disease Qualifiers: Asthma severity: mild Asthma persistence: persistent Asthma complication type: with acute exacerbation Qualified Code(s): J45.31 - Mild persistent asthma with (acute) exacerbation Condition: Good Record reviewed to determine appropriate education?: Yes Instructions: ED Reactive Airway Disease Prescriptions: Albuterol Sulf [Ventolin Hfa Inhaler] 1 - 2 puffs INH Q4HR PRN #1 inhaler PRN Reason: Shortness Of Air/Wheezing Azithromycin 1 tab PO DAILY #4 tablet Comments: Call your doctor to arrange a follow-up appointment, make the next available appointment. In the interim, return anytime if worse or if new symptoms develop. Your blood pressure was elevated today on check into the emergency department. This does not mean that you have hypertension, it is a common phenomenon to come to the emergency department and have elevated blood pressure. I recommend that you see your primary care physician within the week to have it rechecked when you are feeling better.
[2019-06-07 15:16] VITALS: BP 153/93
== END 2019-06-07 15:15 | disposition home or self-care (01) ==
LOC: ED 14:08
DX: J45.31 Mild persistent asthma with (acute) exacerbation (principal); H40.9 Unspecified glaucoma; R03.0 Elevated blood-pressure reading, without diagnosis of hypertension
CPT/HCPCS: 93005; 94640; 94664; 99283; A9270

== ENCOUNTER 2019-06-14 15:18 | Emergency (ER) | payer MEDICAID ==
--- NOTE | 2019-06-14 17:06 | ED Physician Documentation ---
PD HPI DYSPNEA - Stated complaint Stated Complaint: SOA/MED REFILL - Chief complaint Chief Complaint: Allergic Rx - History obtained from History obtained from: Patient - History of Present Illness Timing - onset: How many days ago (several days to a week of URI/cough/congestion. Seen in ER and got albuterol inhaler and tessalon. Has glaucoma so not given steroids. He called and talked with his eye doctors office today and told them about the meds, but thought the inhaler had steroid in it, so was told to come to ER to get different one.) Timing - onset during: Light activity Timing - duration: Days, Weeks (1) Timing - details: Gradual onset, Still present, Waxing and waning Inciting event(s): Out of meds (told to get different inhaler without steroid, and he says the Tessalon helped but out of it.) Improved by: Inhaler/neb (he says the inhaler helped but then was told to not use it by his eye doctor's office nurse.), Other (tessalon) Worsened by: Coughing Associated symptoms: Cough, Wheezing. No: Fever, Hemoptysis Recently seen: Emergency Dept Review of Systems Constitutional: denies: Fever Nose: reports: Rhinorrhea / runny nose, Congestion Throat: denies: Sore throat Cardiac: denies: Chest pain / pressure Respiratory: reports: Dyspnea, Cough GI: denies: Nausea, Vomiting, Diarrhea Skin: denies: Rash, Lesions PD PAST MEDICAL HISTORY - Past Medical History Cardiovascular: None Respiratory: Asthma Neuro: None Endocrine/Autoimmune: None GI: None : None HEENT: Glaucoma Psych: None Musculoskeletal: None Derm: None - Past Surgical History Past Surgical History: Yes Ortho: Arthroscopic surgery - Present Medications Home Medications: Ambulatory Orders Medication Instructions Recorded Confirmed Albuterol Sulf [Ventolin Hfa 1 - 2 puffs INH Q4HR PRN #1 inhaler 10/13/18 Inhaler] Albuterol Sulf [Ventolin Hfa 1 - 2 puffs INH Q4HR PRN #1 inhaler 12/02/18 Inhaler] Benzonatate [Tessalon Perle] 100 - 200 mg PO TID PRN #30 capsule 12/02/18 Latanoprost 0.005% Ophth Drops 1 drops EACHEYE QPM #1 bottle 12/04/18 [Xalatan Ophth Drops] Latanoprost 0.005% Ophth Drops 40 drops EACHEYE QPM 12/04/18 12/04/18 [Xalatan Ophth Drops] Albuterol Sulf [Ventolin Hfa 1 - 2 puffs INH Q4HR PRN #1 inhaler 06/07/19 Inhaler] Azithromycin 1 tab PO DAILY #4 tablet 06/07/19 Albuterol Sulf [Ventolin Hfa 1 - 2 puffs INH Q4HR PRN #1 inhaler 06/14/19 Inhaler] Benzonatate [Tessalon Perle] 100 mg PO TID PRN #30 capsule 06/14/19 - Allergies Allergies/Adverse Reactions: Allergies Allergy/AdvReac Type Severity Reaction Status Date / Time Penicillins Allergy Unknown Verified 06/14/19 15:25 Tetracyclines Allergy Itching Verified 06/14/19 15:25 - Social History Does the pt smoke?: No Smoking Status: Never smoker Does the pt drink ETOH?: No Does the pt have substance abuse?: No - Immunizations Immunizations are current?: No - POLST Patient has POLST: No PD ED PE NORMAL - Vitals Vital signs reviewed: Yes - General General: Alert and oriented X 3, No acute distress, Well developed/nourished - Neck Neck: Supple, no meningeal sign, No adenopathy - Cardiac Cardiac: RRR, No murmur - Respiratory Respiratory: No: Clear bilaterally (no coarse sounds; mild exp wheezing scattered. ) - Abdomen Abdomen: Soft, Non tender Results - Vitals Vitals: Oxygen O2 Source Room air PD MEDICAL DECISION MAKING - ED course Complexity details: reviewed old records, considered differential (was able to assure him the Albuterol did not have steroid in it, so okay to use it, and can give Rx for more Tessalong. ), d/w patient Departure - Departure Disposition: 01 Home, Self Care Clinical Impression: Upper respiratory infection Qualifiers: URI type: unspecified URI Qualified Code(s): J06.9 - Acute upper respiratory infection, unspecified Reactive airway disease Qualifiers: Asthma severity: mild Asthma persistence: intermittent Asthma complication type: with acute exacerbation Qualified Code(s): J45.21 - Mild intermittent asthma with (acute) exacerbation Condition: Stable Record reviewed to determine appropriate education?: Yes Prescriptions: Albuterol Sulf [Ventolin Hfa Inhaler] 1 - 2 puffs INH Q4HR PRN #1 inhaler PRN Reason: Shortness Of Air/Wheezing Benzonatate [Tessalon Perle] 100 mg PO TID PRN #30 capsule PRN Reason: Cough Comments: There is no steroid and the albuterol inhaler that you using. Continue with 2 to 3 puffs 4 times a day as needed for wheezing and trouble breathing. Add benzonatate (Tessalon) as needed for cough suppression. Stay well-hydrated. Tylenol if needed for pains or fevers. Follow-up with your eye doctor as planned. Discharge Date/Time: 06/14/19 18:13
[2019-06-14 17:34] VITALS: BP 138/80
== END 2019-06-14 18:13 | disposition home or self-care (01) ==
LOC: ED 15:18
DX: J06.9 Acute upper respiratory infection, unspecified (principal); J45.21 Mild intermittent asthma with (acute) exacerbation; H40.9 Unspecified glaucoma
CPT/HCPCS: 99282; 99284

== ENCOUNTER 2021-02-10 12:25 | Emergency (ER) | payer MEDICAID ==
[2021-02-10 12:31] VITALS: BP 148/77
--- OUTSIDE RECORDS SUMMARY | 2021-02-10 12:51 | EXTERNAL MEDICAL SUMMARY RPT | Continuity of Care Document ---
:1955 Demographics Phone Unavailable Preferred Language Unknown Marital Status Unknown Catholic Affiliation Unknown Race Unknown Ethnic Group Unknown Author Organization [facility] Address [address] [place] [address] Phone Allergies Encounters Medications Problems Results
[2021-02-10] MEDS ORDERED: DEXAMETHASONE 10 MG/ML VIAL IM STA (12:56)
--- NOTE | 2021-02-10 12:59 | ED Physician Documentation ---
PD HPI SKIN - Stated complaint Stated Complaint: RASH ON BODY - Chief complaint Chief Complaint: Allergic Rx - History obtained from History obtained from: Patient - History of Present Illness Timing - onset: How many days ago (3) Timing - duration: Days (3) Timing - details: Gradual onset Pain level max: 0 Pain level now: 0 Location: Bodywide Quality / character: Itchy Improved by: Benadryl Associated symptoms: No: Fever, Myalgias, Dyspnea, Abd pain, N/V/D Contributing factors: No: Exposed to medication, Exposed to food, Exposed to soap / lotion, Exposed to Poison yimi/oak Similar symptoms before: Has not had sx before - Additional information Additional information: 65-year-old male presents to the emergency department with a body wide rash described as itchy over the past several days. Took Benadryl without relief. Nothing makes it better or worse. No fevers. No chills. No joint pains. No vomiting or diarrhea. No abdominal pain. No difficulty breathing. He states it started after cutting down a tree. Review of Systems Constitutional: denies: Fever, Chills GI: denies: Vomiting, Diarrhea Skin: denies: Rash Musculoskeletal: denies: Neck pain, Back pain Neurologic: denies: Headache PD PAST MEDICAL HISTORY - Past Medical History Past Medical History: Yes Cardiovascular: None Respiratory: Asthma Neuro: None Endocrine/Autoimmune: None GI: None : None HEENT: Glaucoma Psych: None Musculoskeletal: None Derm: None - Past Surgical History Past Surgical History: Yes Ortho: Arthroscopic surgery - Present Medications Home Medications: Ambulatory Orders Medication Instructions Recorded Confirmed Albuterol Sulf [Ventolin Hfa 1 - 2 puffs INH Q4HR PRN #1 inhaler 10/13/18 Inhaler] Albuterol Sulf [Ventolin Hfa 1 - 2 puffs INH Q4HR PRN #1 inhaler 12/02/18 Inhaler] Benzonatate [Tessalon Perle] 100 - 200 mg PO TID PRN #30 capsule 12/02/18 Latanoprost 0.005% Ophth Drops 1 drops EACHEYE QPM #1 bottle 12/04/18 [Xalatan Ophth Drops] Latanoprost 0.005% Ophth Drops 40 drops EACHEYE QPM 12/04/18 12/04/18 [Xalatan Ophth Drops] Albuterol Sulf [Ventolin Hfa 1 - 2 puffs INH Q4HR PRN #1 inhaler 06/07/19 Inhaler] Azithromycin 1 tab PO DAILY #4 tablet 06/07/19 Albuterol Sulf [Ventolin Hfa 1 - 2 puffs INH Q4HR PRN #1 inhaler 06/14/19 Inhaler] Benzonatate [Tessalon Perle] 100 mg PO TID PRN #30 capsule 06/14/19 predniSONE [Deltasone] 10 mg PO [id number] #42 tab 02/10/21 - Allergies Allergies/Adverse Reactions: Allergies Allergy/AdvReac Type Severity Reaction Status Date / Time Penicillins Allergy Unknown Verified 02/10/21 12:28 Tetracyclines Allergy Itching Verified 02/10/21 12:28 - Social History Does the pt smoke?: No Smoking Status: Never smoker Does the pt drink ETOH?: No Does the pt have substance abuse?: No - Immunizations Immunizations are current?: No - POLST Patient has POLST: No PD ED PE NORMAL - Vitals Vital signs reviewed: Yes - General General: Alert and oriented X 3, No acute distress - HEENT HEENT: Moist mucous membranes - Neck Neck: Supple, no meningeal sign - Cardiac Cardiac: RRR, Strong equal pulses - Respiratory Respiratory: No respiratory distress, Clear bilaterally - Derm Derm: Warm and dry - Neuro Neuro: Alert and oriented X 3 - Free text exam Free text exam: Diffuse urticaria over the chest, back, abdomen, arms and legs. Blanches easily. No dusky or necrotic centers. No pustules. Results - Vitals Vitals: Vital Signs - 24 hr 02/10/21 12:28 Temperature 36.6 C Heart Rate 96 Respiratory 16 Rate Blood Pressure 148/77 H O2 Saturation 99 Oxygen O2 Source Room air PD MEDICAL DECISION MAKING - ED course Complexity details: considered differential, d/w patient ED course: Patient with urticaria. Will place on steroids for home. Patient is well- appearing, nontoxic. No hypoxia. No respiratory distress or involvement. Patient counseled regarding signs and symptoms for which I believe and urgent re-evaluation would be necessary. Patient with good understanding of and agreement to plan and is comfortable going home at this time This document was made in part using voice recognition software. While efforts are made to proofread this document, sound alike and grammatical errors may occur. Departure - Departure Disposition: 01 Home, Self Care Clinical Impression: Urticaria Condition: Good Instructions: ED Urticaria Follow-Up: your,doctor in 1 week [Other] Prescriptions: predniSONE [Deltasone] 10 mg PO [id number] #42 tab Comments: Use the steroids as prescribed. You can use Benadryl and/or Zyrtec as well. Follow-up with your doctor for further care. Return if you worsen
== END 2021-02-10 13:30 | disposition home or self-care (01) ==
LOC: ED 12:25
DX: L50.9 Urticaria, unspecified (principal)
CPT/HCPCS: 99283; 99284

== ENCOUNTER 2021-06-06 10:40 | Emergency (ER) | payer MEDICAID ==
[2021-06-06] MEDS ORDERED: ALBUTEROL 1 PUFF INH STA (11:40)
--- NOTE | 2021-06-06 11:42 | ED Physician Documentation ---
History of Present Illness - Stated complaint Stated Complaint: SOA - Chief complaint Chief Complaint: Resp - History obtained from History obtained from: Patient - Additonal information Additional information: 65 yo M w/ pmh of mild intermittent asthma not on regular asthma medications presents stating his "asthma is acting up." States it is triggered by certain chemical exposures like diesel. He has felt short of breath for a few days intermittently and has been coughing quite a bit, feels like he needs to cough something up but can't. No fever, no congestion no sore throat, no body aches, no weakness, no cp, no n/v/d. No known Covid exposure. Review of Systems Ten Systems: 10 systems reviewed and negative Constitutional: reports: Reviewed and negative Eyes: reports: Reviewed and negative Ears: reports: Reviewed and negative Nose: reports: Reviewed and negative Throat: reports: Reviewed and negative Cardiac: reports: Reviewed and negative Respiratory: reports: Dyspnea, Cough, Wheezing. denies: Hemoptysis GI: reports: Reviewed and negative : reports: Reviewed and negative Skin: reports: Reviewed and negative Musculoskeletal: reports: Reviewed and negative Neurologic: reports: Reviewed and negative Psychiatric: reports: Reviewed and negative Endocrine: reports: Reviewed and negative Immunocompromised: reports: Reviewed and negative PD PAST MEDICAL HISTORY - Past Medical History Cardiovascular: None Respiratory: Asthma Neuro: None Endocrine/Autoimmune: None GI: None : None HEENT: Glaucoma Psych: None Musculoskeletal: None Derm: None - Past Surgical History Past Surgical History: Yes Ortho: Arthroscopic surgery - Present Medications Home Medications: Ambulatory Orders Medication Instructions Recorded Confirmed Albuterol Sulf [Ventolin Hfa 1 - 2 puffs INH Q4HR PRN #1 inhaler 10/13/18 Inhaler] Albuterol Sulf [Ventolin Hfa 1 - 2 puffs INH Q4HR PRN #1 inhaler 12/02/18 Inhaler] Benzonatate [Tessalon Perle] 100 - 200 mg PO TID PRN #30 capsule 12/02/18 Latanoprost 0.005% Ophth Drops 1 drops EACHEYE QPM #1 bottle 12/04/18 [Xalatan Ophth Drops] Latanoprost 0.005% Ophth Drops 40 drops EACHEYE QPM 12/04/18 12/04/18 [Xalatan Ophth Drops] Albuterol Sulf [Ventolin Hfa 1 - 2 puffs INH Q4HR PRN #1 inhaler 06/07/19 Inhaler] Azithromycin 1 tab PO DAILY #4 tablet 06/07/19 Albuterol Sulf [Ventolin Hfa 1 - 2 puffs INH Q4HR PRN #1 inhaler 06/14/19 Inhaler] Benzonatate [Tessalon Perle] 100 mg PO TID PRN #30 capsule 06/14/19 predniSONE [Deltasone] 10 mg PO [id number] #42 tab 02/10/21 Albuterol Sulf [Ventolin Hfa 1 - 2 puffs INH Q4HR PRN #1 inhaler 06/06/21 Inhaler] guaiFENesin [Mucinex] 1,200 mg PO BID #20 tablet 06/06/21 - Allergies Allergies/Adverse Reactions: Allergies Allergy/AdvReac Type Severity Reaction Status Date / Time Penicillins Allergy Unknown Verified 06/06/21 10:54 Tetracyclines Allergy Itching Verified 06/06/21 10:54 - Social History Does the pt smoke?: No Smoking Status: Never smoker Does the pt drink ETOH?: No Does the pt have substance abuse?: No - Immunizations Immunizations are current?: No - POLST Patient has POLST: No PD ED PE NORMAL - Vitals Vital signs reviewed: Yes - General General: Alert and oriented X 3, No acute distress, Well developed/nourished - HEENT HEENT: Atraumatic - Neck Neck: Supple, no meningeal sign, No JVD - Cardiac Cardiac: RRR, No murmur, No gallop - Respiratory Respiratory: No respiratory distress, Clear bilaterally - Abdomen Abdomen: Normal bowel sounds, Soft, Non tender, Non distended - Derm Derm: Normal color, Warm and dry, No rash - Extremities Extremities: Normal ROM s pain, No edema, No calf tenderness / cord - Neuro Neuro: Alert and oriented X 3, No motor deficit, No sensory deficit, Normal speech Eye Opening: Spontaneous Motor: Obeys Commands Verbal: Oriented GCS Score: 15 - Psych Psych: Normal mood, Normal affect Results - Vitals Vitals: Vital Signs - 24 hr 06/06/21 06/06/21 10:51 12:06 Temperature 36.8 C Heart Rate 70 95 Respiratory 21 18 Rate Blood Pressure 137/82 H O2 Saturation 99 Oxygen O2 Source Room air PD MEDICAL DECISION MAKING - ED course Complexity details: reviewed results, re-evaluated patient, d/w patient ED course: Pt presents w/ report of asthma exacerbation. At the time of my exam his lungs are clear and his breathing is non labored with a sat of 99%. He feels like he needs albuterol so he was given 2 puffs in the ER and discharged w/ an albuterol mdi to use prn. I obtained a chest xray and EKG which were reassuring. He has no chest pain or gamino and no signs of fluid overload thus I did not pursue a cardiac workup. Pt advised to try mucinex and prn albuterol at home. If no improvement or worsening sx, return to the ER. I recommended he establish care with a PCP for routine follow up within 2-4 weeks. Departure - Departure Disposition: 01 Home, Self Care Clinical Impression: Asthma Condition: Good Instructions: ALBUTEROL Oral Inhaler Prescriptions: Albuterol Sulf [Ventolin Hfa Inhaler] 1 - 2 puffs INH Q4HR PRN #1 inhaler PRN Reason: Shortness Of Air/Wheezing guaiFENesin [Mucinex] 1,200 mg PO BID #20 tablet Comments: You presented shortness of breath with concern for asthma exacerbation. Your chest xray and lung exam are reassuring. We will treat w/ as needed albuterol and cough medication. Please follow up with your primary doctor in 1-2 weeks as needed.
--- NOTE | 2021-06-06 12:10 | XRAY Report ---
PROCEDURE: Chest 1 View X-Ray INDICATIONS: COUGH TECHNIQUE: One view of the chest was acquired. COMPARISON: CXR 12/02/2018, 10/13/2018. FINDINGS: Surgical changes and devices: None. Lungs and pleura: No pleural effusions or pneumothorax. Lungs are clear. Mediastinum: Mediastinal contours appear normal. Heart size is normal. Bones and chest wall: No suspicious bony lesions. Overlying soft tissues appear unremarkable. IMPRESSION: No acute cardiopulmonary abnormality. Reviewed by: Itz Rendon MD on 06/06/2021 12:09 PM PDT Approved by: Itz Rendon MD on 06/06/2021 12:09 PM PDT Station ID: [id number]
[2021-06-06 13:18] VITALS: BP 132/75
== END 2021-06-06 13:18 | disposition home or self-care (01) ==
LOC: ED 10:40
DX: J45.901 Unspecified asthma with (acute) exacerbation (principal)
CPT/HCPCS: 93005; 94640; 99283; 99284

== ENCOUNTER 2022-02-02 09:59 | Emergency (ER) | payer MEDICAID ==
[2022-02-02 10:13] VITALS: BP 148/73
--- NOTE | 2022-02-02 11:00 | ED Physician Documentation ---
PD HPI HEENT - Stated complaint Stated Complaint: SINUS/EAR PX - Chief complaint Chief Complaint: Heent - History obtained from History obtained from: Patient - History of Present Illness Timing - onset: How many weeks ago (2) Timing - duration: Weeks (2) Timing - details: Gradual onset, Still present, Waxing and waning Location: Left ear, Sinuses Improves: Medication Associated symptoms: Congestion, Rhinorrhea, Cough Similar symptoms before: Diagnosis (sinusitis and otitis) Recently seen: Not recently seen - Additional information Additional information: 66-year-old Jean Vargas has developed congestion a cough and pain migrating from his left maxillary sinus to both of his ears to his teeth. He has had similar symptoms previously and usually gets some increase in his asthma with these. Review of Systems Constitutional: denies: Fever Eyes: denies: Decreased vision Ears: reports: Ear pain Nose: reports: Rhinorrhea / runny nose, Congestion, Sinus pressure / pain Throat: reports: Dental pain / toothache. denies: Sore throat Cardiac: denies: Chest pain / pressure, Palpitations Respiratory: reports: Cough GI: denies: Abdominal Pain, Nausea, Vomiting, Diarrhea PD PAST MEDICAL HISTORY - Past Medical History Past Medical History: Yes Cardiovascular: None Respiratory: Asthma Neuro: None Endocrine/Autoimmune: None GI: None : None HEENT: Glaucoma Psych: None Musculoskeletal: None Derm: None - Past Surgical History Past Surgical History: Yes Ortho: Arthroscopic surgery - Present Medications Home Medications: Ambulatory Orders Medication Instructions Recorded Confirmed Albuterol Sulf [Ventolin Hfa 1 - 2 puffs INH Q4HR PRN #1 inhaler 10/13/18 Inhaler] Albuterol Sulf [Ventolin Hfa 1 - 2 puffs INH Q4HR PRN #1 inhaler 12/02/18 Inhaler] Benzonatate [Tessalon Perle] 100 - 200 mg PO TID PRN #30 capsule 12/02/18 Latanoprost 0.005% Ophth Drops 1 drops EACHEYE QPM #1 bottle 12/04/18 [Xalatan Ophth Drops] Latanoprost 0.005% Ophth Drops 40 drops EACHEYE QPM 12/04/18 12/04/18 [Xalatan Ophth Drops] Albuterol Sulf [Ventolin Hfa 1 - 2 puffs INH Q4HR PRN #1 inhaler 06/07/19 Inhaler] Azithromycin 1 tab PO DAILY #4 tablet 06/07/19 Albuterol Sulf [Ventolin Hfa 1 - 2 puffs INH Q4HR PRN #1 inhaler 06/14/19 Inhaler] Benzonatate [Tessalon Perle] 100 mg PO TID PRN #30 capsule 06/14/19 predniSONE [Deltasone] 10 mg PO [id number] #42 tab 02/10/21 Albuterol Sulf [Ventolin Hfa 1 - 2 puffs INH Q4HR PRN #1 inhaler 06/06/21 Inhaler] guaiFENesin [Mucinex] 1,200 mg PO BID #20 tablet 06/06/21 Albuterol Sulf [Ventolin Hfa 1 - 2 puffs INH Q4HR PRN #1 inhaler 02/02/22 Inhaler] Clindamycin [Cleocin] 300 mg PO TID 10 Days #30 cap 02/02/22 - Allergies Allergies/Adverse Reactions: Allergies Allergy/AdvReac Type Severity Reaction Status Date / Time Penicillins Allergy Unknown Verified 02/02/22 10:12 Tetracyclines Allergy Itching Verified 02/02/22 10:12 - Social History Does the pt smoke?: No Smoking Status: Never smoker Does the pt drink ETOH?: No Does the pt have substance abuse?: No - Immunizations Immunizations are current?: No - POLST Patient has POLST: No PD ED PE NORMAL - Vitals Vital signs reviewed: Yes (Hypertensive) - General General: Alert and oriented X 3, No acute distress, Well developed/nourished - HEENT HEENT: Atraumatic, PERRL, EOMI, Other (Both ears are occluded with cerumen. There is tenderness to the left maxillary sinus. There are broken teeth that are broken off at the gum level.) - Neck Neck: Supple, no meningeal sign, No bony TTP - Cardiac Cardiac: RRR, No murmur - Respiratory Respiratory: No respiratory distress, Clear bilaterally - Abdomen Abdomen: Soft, Non tender - Back Back: No CVA TTP, No spinal TTP - Derm Derm: Normal color, Warm and dry, No rash - Extremities Extremities: No deformity, No edema - Neuro Neuro: Alert and oriented X 3, team supervisor 2-12 intact, No motor deficit, No sensory deficit, Normal speech Eye Opening: Spontaneous Motor: Obeys Commands Verbal: Oriented GCS Score: 15 - Psych Psych: Normal mood, Normal affect Results - Vitals Vitals: Vital Signs - 24 hr 02/02/22 10:11 Temperature 36.4 C L Heart Rate 75 Respiratory 16 Rate Blood Pressure 148/73 H O2 Saturation 95 Oxygen O2 Source Room air PD MEDICAL DECISION MAKING - ED course Complexity details: reviewed results, re-evaluated patient, considered differential, d/w patient ED course: 66-year-old male with sinus infection reports that his symptoms have previously been controlled with a green pill and I have reviewed the pharmacy draws from the patient over the past year and he has been on clindamycin. We have prescribed the clindamycin for him and we have given him a dose of dexamethasone here in the emergency department. Departure - Departure Disposition: 01 Home, Self Care Clinical Impression: Sinusitis Qualifiers: Sinusitis location: maxillary Chronicity: acute Recurrence: not specified as recurrent Qualified Code(s): J01.00 - Acute maxillary sinusitis, unspecified Condition: Stable Instructions: ED Sinusitis Abx Tx Follow-Up: Your, doctor [Other] Prescriptions: Albuterol Sulf [Ventolin Hfa Inhaler] 1 - 2 puffs INH Q4HR PRN #1 inhaler PRN Reason: Shortness Of Air/Wheezing Clindamycin [Cleocin] 300 mg PO TID 10 Days #30 cap Comments: Jean today looks like you have infection in your left maxillary sinus and likely in both of your ears as well. We were not able to see in the ears today. The recommendation for treatment is to use the antibiotic that you have used previously with the clindamycin 3 times a day for 10 days use your inhaler as needed.Your medications have been E scribed to [facility] in [place]. Discharge Date/Time: 02/02/22 11:16
== END 2022-02-02 11:16 | disposition home or self-care (01) ==
LOC: ED 09:59
DX: J01.00 Acute maxillary sinusitis, unspecified (principal)
CPT/HCPCS: 99282; 99283

== ENCOUNTER 2023-05-25 09:36 | Emergency (ER) | payer MEDICAID, MEDICARE ==
--- NOTE | 2023-05-25 10:40 | XRAY Report ---
PROCEDURE: Chest 2 View X-Ray INDICATIONS: productive cough. Asthma history. TECHNIQUE: 2 views of the chest were acquired. COMPARISON: 06/06/2021 FINDINGS: Surgical changes and devices: None. Lungs and pleura: No pleural effusions or pneumothorax. Lungs are clear. Mediastinum: Mediastinal contours appear normal. Heart size is normal. Bones and chest wall: No suspicious bony lesions. Overlying soft tissues appear unremarkable. IMPRESSION: No acute radiographic abnormality. Reviewed by: Dayne Story MD on 05/25/2023 10:38 AM PDT Approved by: Dayne Story MD on 05/25/2023 10:38 AM PDT Station ID: [id number]
[2023-05-25 10:48] LABS: B. PARAPERTUSSIS- RESP PCR PAN NOT DETECTED; B. PERTUSSIS- RESP PCR PANEL NOT DETECTED; C. PNEUMONIAE- RESP PCR PANEL NOT DETECTED; CORONAVIRUS 229E-RESP PCR NOT DETECTED; CORONAVIRUS HKU1-RESP PCR NOT DETECTED; CORONAVIRUS NL63-RESP PCR NOT DETECTED; CORONAVIRUS OC43-RESP PCR NOT DETECTED; HUMAN METAPNEUMOVIRUS NOT DETECTED; INFLUENZA A- RESP PCR PANEL NOT DETECTED; INFLUENZA B - RESP PCR PANEL NOT DETECTED; M. PNEUMONIAE- RESP PCR PANEL NOT DETECTED; PARAINFLUENZA VIRUS 1 NOT DETECTED; PARAINFLUENZA VIRUS 2 NOT DETECTED; PARAINFLUENZA VIRUS 3 NOT DETECTED; PARAINFLUENZA VIRUS 4 NOT DETECTED; RHINOVIRUS/ENTEROVIRUS NOT DETECTED; RSV- RESP PCR PANEL NOT DETECTED
[2023-05-25 10:50] LABS: SARS-CoV-2 -RESP PCR PANEL DETECTED
--- NOTE | 2023-05-25 11:27 | ED Physician Documentation ---
PD HPI URI - Stated complaint Stated Complaint: FEVER/SOA - Chief complaint Chief Complaint: Resp - History obtained from History obtained from: Patient - History of Present Illness Timing - onset: How many weeks ago (09/14) Timing duration: Weeks (09/14) Timing details: Abrupt onset, Still present (was slightly improving but then worse cough again with now productive sputum. Still feverish/chills.) Associated symptoms: Fever, Chills, Sweats, Nasal congestion, Productive cough, Other (malaise and tired.). No: NVD Contributing factors: COPD / asthma. No: Sick contact, Immunocompromised Similar symptoms before: Has not had sx before Review of Systems Constitutional: reports: Fever, Chills, Myalgias, Fatigue Nose: reports: Rhinorrhea / runny nose, Congestion Throat: denies: Sore throat Cardiac: denies: Chest pain / pressure Respiratory: reports: Dyspnea, Cough GI: reports: Nausea. denies: Vomiting, Diarrhea PD PAST MEDICAL HISTORY - Past Medical History Past Medical History: Yes Cardiovascular: None Respiratory: Asthma Neuro: None Endocrine/Autoimmune: None GI: None : None HEENT: Glaucoma Psych: None Musculoskeletal: None Derm: None - Past Surgical History Past Surgical History: Yes Ortho: Arthroscopic surgery - Present Medications Home Medications: Ambulatory Orders Medication Instructions Recorded Confirmed Latanoprost 0.005% Ophth Drops 1 drops EACHEYE QPM #1 bottle 12/04/18 05/25/23 [Xalatan Ophth Drops] Albuterol Sulf [Ventolin Hfa 1 - 2 puffs INH Q4HR PRN #1 inhaler 02/02/22 05/25/23 Inhaler] Albuterol Sulf [Ventolin Hfa 2 - 3 puffs INH QID #1 each 05/25/23 Inhaler] dexAMETHasone [Decadron] 4 mg PO DAILY #5 tablet 05/25/23 Azithromycin [Zithromax] 0 mg PO DAILY #6 tablet 05/26/23 - Allergies Allergies/Adverse Reactions: Allergies Allergy/AdvReac Type Severity Reaction Status Date / Time Penicillins Allergy Unknown Verified 05/25/23 09:47 Tetracyclines Allergy Itching Verified 05/25/23 09:47 - Social History Does the pt smoke?: No Smoking Status: Never smoker Does the pt drink ETOH?: No Does the pt have substance abuse?: Yes Substance Use and Type: Marijuana - Immunizations Immunizations are current?: No Immunizations: Other immun not current - POLST Patient has POLST: No PD ED PE NORMAL - Vitals Vital signs reviewed: Yes - General General: Alert and oriented X 3, No acute distress, Well developed/nourished - HEENT HEENT: Pharynx benign - Neck Neck: Supple, no meningeal sign, No adenopathy - Cardiac Cardiac: RRR, No murmur - Respiratory Respiratory: No respiratory distress. No: Clear bilaterally (no coarse sounds. Has some scattered wheezing. ) - Abdomen Abdomen: Soft, Non tender - Derm Derm: Normal color, Warm and dry - Neuro Neuro: Alert and oriented X 3, Normal speech Results - Vitals Vitals: Oxygen O2 Source Room air - Labs Labs: Laboratory Tests 05/25/23 09:49 Nasal Adenovirus (PCR) NOT DETECTED Nasal B. parapertussis DNA (PCR) NOT DETECTED Nasal Coronavir 229E PCR NOT DETECTED Nasal Coronavir HKU1 PCR NOT DETECTED Nasal Coronavir NL63 PCR NOT DETECTED Nasal Coronavir OC43 PCR NOT DETECTED Nasal Enterovir/Rhinovir PCR NOT DETECTED Nasal Influenza B PCR NOT DETECTED Nasal Influenza A PCR NOT DETECTED Nasal Parainfluen 1 PCR NOT DETECTED Nasal Parainfluen 2 PCR NOT DETECTED Nasal Parainfluen 3 PCR NOT DETECTED Nasal Parainfluen 4 PCR NOT DETECTED Nasal RSV (PCR) NOT DETECTED Nasal B.pertussis DNA PCR NOT DETECTED Nasal C.pneumoniae (PCR) NOT DETECTED Arnaldo Human Metapneumo PCR NOT DETECTED Nasal M.pneumoniae (PCR) NOT DETECTED Nasal SARS-CoV-2 (PCR) DETECTED A - Rads (name of study) chest xray Relevant Findings:: Prelim report reviewed, EMP independent interpretation of test (no infiltrates.) PD Medical Decision Making - ED course Complexity details: considered differential (has had URI symptoms for 1 1/2 weeks with persistent and worsening cough, now productive of white sputum. Concerned for bronchitis. Duration of cough is not unusual with viral URI. However still having fevers/chills and now productive cough could be suggestive of secondary bacterial. CXR clear.), d/w patient Departure - Departure Disposition: 01 Home, Self Care Clinical Impression: Upper respiratory infection, COVID-19, Bronchitis with acute wheezing, Asthma Condition: Stable Record reviewed to determine appropriate education?: Yes Instructions: ED URI Viral W Wheezing Prescriptions: dexAMETHasone [Decadron] 4 mg PO DAILY #5 tablet Albuterol Sulf [Ventolin Hfa Inhaler] 2 - 3 puffs INH QID #1 each Azithromycin [Zithromax] 0 mg PO DAILY #6 tablet Comments: Your respiratory viral panel tested positive for COVID. It was negative for other common viruses. Your chest x-ray is clear without any signs of pneumonia. Given the persistence of your cough and phlegm and trouble breathing, it may be not only the COVID symptoms persistent but sometimes he can develop a secondary bacterial infection. This will also flareup your asthma and that can be treated as well. Continue with the albuterol inhaler 2 puffs 4 times daily for the next several days to a week or more. Extra times if needed. Add Decadron steroid anti-inflammatory to help with the asthma flareup and bronchial inflammation. We can add cefuroxime antibiotic for potential bacterial bronchitis developing at this point. Continue with staying well-hydrated and cough medicine as needed. I would anticipate improvement over the next several days. I sent your prescription to the [facility] in [place]. You have been ill long enough at this point that you would not have any benefit from antiviral medicines for the COVID. Forms: PCP List Discharge Date/Time: 05/25/23 12:14
[2023-05-25] MEDS ORDERED: dexAMETHasone 4 MG TABLET PO STA (11:49)
[2023-05-25 12:21] VITALS: BP 133/77; O2SAT 97
--- NOTE | 2023-05-26 09:20 | ED Physician Documentation ---
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 He states that the pharmacist refused to dispense the antibiotic for this reason. The patient stated that the pharmacy tried to call us but "could not get through" so they told him to call us himself. The patient has allergies to penicillin and tetracycline. I did review the patient's prescriptions and explained to him that indeed his antibiotic does not have penicillin and but that there is a small chance of cross over of allergy. I have explained to the patient that this generally does not occur in that most patients will do fine on this antibiotic despite penicillin allergy. However, I have stated to the patient that I will send a prescription for completely unrelated medication and if he prefers the patient does prefer. I have electronically transmitted a prescription for Zithromax to the [facility] pharmacy in [place]. The patient has had many other questions including why he was not given medication for COVID and why his dexamethasone is making his heart race. I have advised him that at this point, his symptoms are mild and he should continue his medications as directed. If the patient cannot tolerate side effects of dexamethasone, then he is free to not take it. We have discussed that if he begins to have severe trouble breathing, then he should return to the emergency department
== END 2023-05-25 12:14 | disposition home or self-care (01) ==
LOC: ED 09:36
DX: U07.1 COVID-19 (principal); J06.9 Acute upper respiratory infection, unspecified; J40 Bronchitis, not specified as acute or chronic
CPT/HCPCS: 71046; 87633; 99284; A9270; J8540

== ENCOUNTER 2024-03-07 08:52 | Emergency (ER) | payer MEDICARE, MEDICAID ==
[2024-03-07 09:30] VITALS: O2SAT 98
--- NOTE | 2024-03-07 09:50 | ED Physician Documentation ---
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 He has been able to get this to go away if he is laying down it has come out several times. He is not having nausea or vomiting he has not had fever. He has not had the symptoms previously. Review of Systems Constitutional: denies: Fever Eyes: denies: Decreased vision Ears: denies: Ear pain Nose: denies: Congestion Throat: denies: Sore throat Respiratory: denies: Cough GI: denies: Abdominal Pain, Nausea, Vomiting, Constipation, Diarrhea : denies: Dysuria, Frequency PD PAST MEDICAL HISTORY - Past Medical History Past Medical History: Yes Cardiovascular: None Respiratory: Asthma Neuro: None Endocrine/Autoimmune: None GI: None : Kidney stones HEENT: Glaucoma Psych: None Musculoskeletal: Osteoarthritis Derm: None - Past Surgical History Past Surgical History: Yes Ortho: Arthroscopic surgery - Present Medications Home Medications: Ambulatory Orders Medication Instructions Recorded Confirmed Latanoprost 0.005% Ophth Drops 1 drops EACHEYE QPM #1 bottle 12/04/18 03/07/24 [Xalatan Ophth Drops] Albuterol Sulf [Ventolin Hfa 1 - 2 puffs INH Q4HR PRN #1 inhaler 02/02/22 03/07/24 Inhaler] - Allergies Allergies/Adverse Reactions: Allergies Allergy/AdvReac Type Severity Reaction Status Date / Time Penicillins Allergy Unknown Verified 03/07/24 09:15 Tetracyclines Allergy Itching Verified 03/07/24 09:15 - Social History Does the pt smoke?: No Smoking Status: Never smoker Does the pt drink ETOH?: No Does the pt have substance abuse?: Yes Substance Use and Type: CBD oil / Products - Immunizations Immunizations are current?: No Immunizations: TDAP >10years/unknown, Other immun not current - POLST Patient has POLST: No PD ED PE NORMAL - Vitals Vital signs reviewed: Yes (Hypertensive mild) - General General: Alert and oriented X 3, No acute distress, Well developed/nourished - HEENT HEENT: Atraumatic, PERRL, EOMI - Respiratory Respiratory: No respiratory distress - Male Male : Other (There is no hernia mass present to external palpation. 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 He is given instructions on inguinal hernia instructed on how to reduce a hernia and instructed to follow-up with the surgeon for potential surgery. Departure - Departure Disposition: 01 Home, Self Care Clinical Impression: Inguinal hernia Qualifiers: Obstruction and gangrene presence: without obstruction or gangrene Laterality: unilateral Recurrence: non-recurrent Qualified Code(s): K40.90 - Unilateral inguinal hernia, without obstruction or gangrene, not specified as recurrent Condition: Stable Instructions: ED Hernia Inguinal Follow-Up: Isaac Tapia MD [Provider Admit Priv/Credential] - Comments: Jean, today it looks like you have an inguinal hernia. This "mass" will protr ude from the groin with heavy lifting, coughing, sneezing and anything that will increase the pressure in your abdomen. When this happens lay down place your hands around the mass and if you are unable to get it to go back into the abdomen come into the emergency department to see us. Otherwise get in to see the surgeon as this problem will not go away. I have given you Dr. Tapia's number for follow-up. A surgery is usually indicated when symptoms are interfering with your lifestyle. Forms: PCP List Discharge Date/Time: 03/07/24 10:12
[2024-03-07 10:20] VITALS: BP 134/82
== END 2024-03-07 10:12 | disposition home or self-care (01) ==
LOC: ED 08:52
DX: K40.90 Unilateral inguinal hernia, without obstruction or gangrene, not specified as recurrent (principal); X50.0XXA Overexertion from strenuous movement or load, initial encounter; Y93.89 Activity, other specified
CPT/HCPCS: 99282; 99283

== ENCOUNTER 2024-11-25 15:44 | Inpatient (IN) ==
[2024-11-25 16:05] LABS: BASOPHILS % (AUTO) 0.3 %; EOSINOPHILS # (AUTO) 0.1 10^3/uL (0.0-0.7); EOSINOPHILS % (AUTO) 2.4 %; HCT - HEMATOCRIT 46.1 % (42.0-52.0); HGB - HEMOGLOBIN 14.4 g/dL (14.0-18.0); LYMPHOCYTES # (AUTO) 1.2 10^3/uL (1.5-3.5); LYMPHOCYTES % (AUTO) 35.3 %; MEAN CORPUSCULAR HEMOGLOBIN 26.6 pg (27.0-31.0); MEAN CORPUSCULAR HGB CONC 31.2 g/dL (32.0-36.0); MEAN CORPUSCULAR VOLUME 85.1 fL (80.0-94.0); MEAN PLATELET VOLUME 10.3 fL (7.4-11.4); MONOCYTES # (AUTO) 0.5 10^3/uL (0.0-1.0); NEUTROPHILS # (AUTO) 1.6 10^3/uL (1.5-6.6); PLT - PLATELET COUNT 176 10^3/uL (130-450); RED BLOOD COUNT 5.42 10^6/uL (4.70-6.10); RED CELL DISTRIBUTION WIDTH 14.1 % (12.0-15.0); WHITE BLOOD COUNT 3.4 x10^3/uL (4.8-10.8)
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
[2024-11-25 16:21] LABS: ALBUMIN 3.9 g/dL (3.2-5.5); ALBUMIN/GLOBULIN RATIO 1.4 (1.0-2.2); BILIRUBIN,TOTAL 0.3 mg/dL (0.2-1.0); CALCIUM 8.6 mg/dL (8.5-10.3); CREATININE 1.2 mg/dL (0.6-1.3); POTASSIUM 3.7 mmol/L (3.5-4.5); TOTAL PROTEIN 6.6 g/dL (6.4-8.9)
[2024-11-25 16:27] LABS: TROPONIN I HIGH SENSITIVITY 5.5 ng/L (2.3-19.7)
[2024-11-25 16:29] LABS: CARBOXYHEMOGLOBIN VENOUS 0.8 % (0-1.5); HEMOGLOBIN TOTAL, VENOUS WB 15.1 g/dL (14.0-17.8); OXYHEMOGLOBIN, VENOUS 68 % (94-97)
[2024-11-25 16:30] LABS: METHEMOGLOBIN VENOUS 0.3 % (<0.3-1.5)
[2024-11-25] MEDS: ONDANSETRON 4 MG/2 ML VIAL IVP STA (16:34)
--- NOTE | 2024-11-25 16:36 | XRAY Report ---
PROCEDURE: XR Chest 1V INDICATIONS: Chest pain TECHNIQUE: One view of the chest was acquired. COMPARISON: Chest x-ray 05/15/2023 FINDINGS: Surgical changes and devices: None. Lungs and pleura: No pleural effusions or pneumothorax. No consolidation. Mediastinum: Mediastinal contours appear normal. Heart size is normal. Bones and chest wall: No suspicious bony lesions. Overlying soft tissues appear unremarkable. IMPRESSION: No acute cardiopulmonary process. Reviewed by: Peggy Goldsmith MD on 11/25/2024 4:35 PM PDT Approved by: Peggy Goldsmith MD on 11/25/2024 4:35 PM PDT Station ID: [id number]
[2024-11-25] MEDS: SODIUM CHLORIDE 0.9% 1,000 ML IV STA (17:11)
--- NOTE | 2024-11-25 18:03 | CT Report ---
PROCEDURE: CT Head WO INDICATIONS: fall, syncope TECHNIQUE: Noncontrast 4.5 mm thick angled axial sections acquired from the foramen magnum to the vertex. For r adiation dose reduction, the following was used: automated exposure control, adjustment of mA and/or kV according to patient size. COMPARISON: None. FINDINGS: Image quality: Excellent. CSF spaces: Basal cisterns are patent. No extra-axial fluid collections. Ventricles are normal in size and shape. Brain: No midline shift. No intracranial masses or hemorrhage. Oliva-white matter interface is norm al. Skull and face: Calvarium and visualized facial bones are intact, without suspicious lesions. Sinuses: Visualized sinuses and mastoids are clear. IMPRESSION: No acute intracranial pathology. Reviewed by: Peggy Goldsmith MD on 11/25/2024 6:02 PM PDT Approved by: Peggy Goldsmith MD on 11/25/2024 6:02 PM PDT Station ID: [id number]
--- NOTE | 2024-11-25 19:27 | HISTORY & PHYSICAL EXAMINATION ---
Chief Complaint Chief Complaint Chief Complaint: Syncope and collapse History of Present Illness Admitted From Admitted From:: Home History Obtained From History obtained from: Patient interview History of Present Illness HPI Comment/Other: 69-year-old male PMH glaucoma and inguinal hernia who was outside [facility] when he had chest pain and collapsed. He reports fevers and chills for the past 3 days, but says that he has been fairly stable with this and able to tolerate p.o. intake. He reports history of frequent dental infections, saying that he manages this with oral peroxide. He states that he had total syncope and his first episode and then had severe near syncope twice while attempting to get up. He was helped back into the house by his dog In the ER, chest x-ray and EKG were performed which showed no acute abnormality. Head CT also showed no acute abnormality. Lab work was overall unremarkable, WBC 3.4, no significant chemistry abnormalities. VBG was performed which showed oxyhemoglobin of 68%. Troponin negative. Hospitalist was contacted for observation for syncope Meds/Allgy Home Medications Ambulatory Orders Medication Instructions Recorded Confirmed latanoprost 0.005 % eye drops 1 drp EACHEYE QPM ##1 12/04/18 07/01/24 albuterol sulfate 90 mcg/actuation 1 - 2 puff inhalation Q4HR PRN 02/02/22 07/01/24 aerosol inhaler (Ventolin HFA) Shortness Of Air/Wheezing ##1 latanoprost 0.005 % eye drops 1 drp ophthalmic (eye) DAILY #7.5 07/01/24 mL Allergies Allergies Allergy/AdvReac Type Severity Reaction Status Date / Time Penicillins Allergy Unknown Verified 07/01/24 08:18 Tetracyclines Allergy Itching Verified 07/01/24 08:18 [facility] Active Problems All Active Problems (Updated 11/25/24 @ 19:19 by Oscar Guidry DNP) Groin pain (Acute) Light-headedness (Acute) Syncope and collapse (Acute) Medical History Medical History (Updated 11/25/24 @ 19:19 by Oscar Guidry DNP) History of asthma Hx of glaucoma Social History Social History (Updated 07/01/24 @ 08:25 by De Smith RN) Smoking Status: Never smoker Do you vape?: No Living arrangement: At home Relationship: Do you feel safe in your home environment?: Yes Suffered physical, verbal, emotional, or financial abuse?: No History of Abuse: No ETOH Use: None Substance Use: cannabis (any form) POLST Patient has POLST: No Review of Systems Status of ROS: 10 or more systems reviewed and unremarkable except as noted in history and below Constitutional Reports: Fever and Chills Ears, nose, mouth, and throat Reports: Dental pain and Dental decay Cardiovascular Reports: chest pain, palpitations, Syncope and shortness of breath with exertion (Chronic, due to asthma); Denies: edema or swelling of feet/ankles Respiratory Reports: Shortness of breath (Chronic, due to asthma) Gastrointestinal Reports: other (Pain in groin from inguinal hernia); Denies: Abdominal pain Exam Constitutional Elderly male, dirty from working outside [facility] normocephalic, head/scalp atraumatic and dentition abnormal (caries) Eyes PERRL Neck/C-Spine visual inspection normal Lymph no lymphadenopathy noted Chest inspection of chest normal Respiratory breath sounds equal bilaterally Cardiovascular heart rate abnormal (bradycardic) and regular rhythm noted Gastrointestinal abdomen normal to inspection and abdomen soft to palpation Neurology GCS 15 Psychiatry oriented x3 Skin skin color normal Conclusion/Plan Problem List (1) Syncope and collapse: Plan: He reports fevers and chills for the past few days. He also reports dental pain, says that he gets frequent dental infections which he treats with peroxide. He will need outpatient follow-up with dentistry regarding this CT head, CXR, EKG unremarkable Troponin negative x 1, I have ordered repeat troponin x 2 to trend Check echocardiogram Telemetry Received IV fluid bolus in the ER Check respiratory viral panel Check UDS Check UA Orthostatic vital signs I have added on a procalcitonin to check for bacterial infection which could be contributing. I have a low suspicion for bacterial infection given no elevation in WBCs. He does report frequent dental infections, so I will go ahead and check blood cultures and I will add antibiotics if his procalcitonin is positive (2) History of asthma: Plan: DuoNeb RT 4 times daily as needed Not in acute flare (3) Groin pain: Plan: He reports history of hernia as described to him by a friend of his who is an ER physician. He has not attempted to be seen by a primary care provider or a general surgeon for this. I am ordering a inguinal ultrasound. This will likely need to be addressed outpatient as the hernia is reducible Plan Placed in observation Full code His brother is his surrogate decision-maker Lab Results Lab results reviewed: Yes 11/25/24 16:01 11/25/24 16:01 Diagnostic Imaging Results Diagnostic Imaging Results: positive Final report reviewed Diagnostic Imaging Results Comments: CT head, CXR as above EKG Results EKG Interpreted Independently: Yes EKG Findings: Sinus rhythm Core Measures Anticipated LOS I expect patient to be DC'd or transferred within 96 hours.: Yes DVT/VTE - Prophylaxis VTE/DVT Device ordered at admit?: No VTE/DVT Prophylaxis med ordered at admit?: Yes
[2024-11-25 20:10] LABS: BILIRUBIN,URINE NEGATIVE (NEGATIVE); GLUCOSE, URINE (UA) NEGATIVE (NEGATIVE); KETONES,URINE (UA) TRACE mg/dL (NEGATIVE); LEUKOCYTE ESTERASE, URINE NEGATIVE (NEGATIVE); NITRITE,URINE NEGATIVE (NEGATIVE); OCCULT BLOOD,URINE TRACE-INTA (NEGATIVE); PH,URINE 5.5 PH (5.0-7.5); PROTEIN,URINE NEGATIVE (NEGATIVE); UROBILINOGEN,URINE 0.2 (NORMAL) E.U./dL (NORMAL)
[2024-11-25] MEDS ORDERED: SODIUM CHLORIDE FLUSH 0.9% 10 ML SYRINGE IVP PRN (20:25)
[2024-11-25] MEDS ORDERED: IPRATROPIUM/ALBUTEROL 3 ML NEB INH PRN (20:25)
[2024-11-25] MEDS ORDERED: ACETAMINOPHEN 325 MG TABLET PO PRN (20:25)
[2024-11-25] MEDS ORDERED: ONDANSETRON ODT 4 MG TABLET TL PRN (20:25)
[2024-11-25] MEDS ORDERED: ONDANSETRON 4 MG/2 ML VIAL IVP PRN (20:25)
[2024-11-25 20:26] LABS: CLARITY,URINE CLEAR (CLEAR)
[2024-11-25 20:27] LABS: AMPHETAMINE SCREEN,URINE NEGATIVE (NEGATIVE); BARBITURATE SCREEN,UR NEGATIVE (NEGATIVE); BENZODIAZEPINES SCREEN, URINE NEGATIVE (NEGATIVE); BUPRENORPHINE SCREEN, URINE NEGATIVE (NEGATIVE); COCAINE SCREEN URINE NEGATIVE (NEGATIVE); METHADONE SCREEN, URINE NEGATIVE (NEGATIVE); METHAMPHETAMINES SCREEN, URINE NEGATIVE (NEGATIVE); OPIATE SCREEN, URINE NEGATIVE (NEGATIVE); OXYCODONE SCREEN, URINE NEGATIVE (NEGATIVE); THC CANNABINOID SCREEN, URINE POSITIVE (NEGATIVE); TRICYCLIC ANTIDEPRESSANT,URINE NEGATIVE (NEGATIVE)
[2024-11-25 21:20] LABS: B. PARAPERTUSSIS- RESP PCR PAN NOT DETECTED; B. PERTUSSIS- RESP PCR PANEL NOT DETECTED; C. PNEUMONIAE- RESP PCR PANEL NOT DETECTED; CORONAVIRUS 229E-RESP PCR NOT DETECTED; CORONAVIRUS HKU1-RESP PCR NOT DETECTED; CORONAVIRUS NL63-RESP PCR NOT DETECTED; CORONAVIRUS OC43-RESP PCR NOT DETECTED; HUMAN METAPNEUMOVIRUS NOT DETECTED; INFLUENZA A H1 2009- RESP PCR DETECTED; INFLUENZA B - RESP PCR PANEL NOT DETECTED; M. PNEUMONIAE- RESP PCR PANEL NOT DETECTED; PARAINFLUENZA VIRUS 1 NOT DETECTED; PARAINFLUENZA VIRUS 2 NOT DETECTED; PARAINFLUENZA VIRUS 4 NOT DETECTED; RHINOVIRUS/ENTEROVIRUS NOT DETECTED; RSV- RESP PCR PANEL NOT DETECTED; SARS-CoV-2 -RESP PCR PANEL NOT DETECTED
[2024-11-25] MEDS: CHLORHEXIDINE GLUCONATE 15 ML UDC PO SCH (22:18)
[2024-11-26] MEDS: SODIUM CHLORIDE FLUSH 0.9% 10 ML SYRINGE IVP SCH (00:02)
[2024-11-26 04:54] LABS: BASOPHILS % (AUTO) 0.6 %; EOSINOPHILS # (AUTO) 0.2 10^3/uL (0.0-0.7); EOSINOPHILS % (AUTO) 4.8 %; HCT - HEMATOCRIT 42.6 % (42.0-52.0); HGB - HEMOGLOBIN 13.4 g/dL (14.0-18.0); LYMPHOCYTES # (AUTO) 1.5 10^3/uL (1.5-3.5); LYMPHOCYTES % (AUTO) 45.3 %; MEAN CORPUSCULAR HGB CONC 31.5 g/dL (32.0-36.0); MEAN CORPUSCULAR VOLUME 85.9 fL (80.0-94.0); MONOCYTES # (AUTO) 0.6 10^3/uL (0.0-1.0); MONOCYTES % (AUTO) 16.8 %; NEUTROPHILS # (AUTO) 1.1 10^3/uL (1.5-6.6); NEUTROPHILS % (AUTO) 32.5 %; PLT - PLATELET COUNT 160 10^3/uL (130-450); RED BLOOD COUNT 4.96 10^6/uL (4.70-6.10); RED CELL DISTRIBUTION WIDTH 14.1 % (12.0-15.0); WHITE BLOOD COUNT 3.3 x10^3/uL (4.8-10.8)
[2024-11-26 05:11] LABS: CALCIUM 7.9 mg/dL (8.5-10.3); CREATININE 0.8 mg/dL (0.6-1.3); POTASSIUM 4.1 mmol/L (3.5-4.5)
[2024-11-26] MEDS: ENOXAPARIN 40 MG/0.4 ML SYRINGE SUBQ SCH (08:16)
--- NOTE | 2024-11-26 11:53 | PROVIDER PROGRESS NOTE ---
Subjective Prog Note Date Prog Note Date: 11/26/24 Subjective Pt reports feeling: Improved Current Medications Current Medications Current Medications: Current Medications Generic Name Dose Route Start Last Admin Trade Name Freq PRN Reason Stop Dose Admin Acetaminophen 650 mg 11/25/24 20:25 Acetaminophen 325 Mg Tablet PO Q4HR PRN Pain 1 to 4, or Fever Albuterol/Ipratropium 3 ml 11/25/24 20:25 Ipratropium/Albuterol 3 Ml Neb INH RTQID PRN Shortness of Air/Wheezing Chlorhexidine Gluconate 15 ml 11/25/24 21:00 11/26/24 08:16 Chlorhexidine Gluconate 15 Ml Udc PO 15 ml BID DESIREE Administration Enoxaparin Sodium 40 mg 11/26/24 09:00 11/26/24 08:16 Enoxaparin 40 Mg/0.4 Ml Syringe SUBQ 40 mg DAILY DESIREE Administration Ondansetron HCl 4 mg 11/25/24 20:25 Ondansetron Odt 4 Mg Tablet TL Q6HR PRN Nausea / Vomiting Ondansetron HCl 4 mg 11/25/24 20:25 Ondansetron 4 Mg/2 Ml Vial IVP Q6HR PRN Nausea / Vomiting Sodium Chloride 10 ml 11/25/24 20:25 Sodium Chloride Flush 0.9% 10 Ml Syringe IVP PRN PRN NEEDED PER PROVIDER ORDERS Sodium Chloride 10 ml 11/26/24 01:00 11/26/24 08:18 Sodium Chloride Flush 0.9% 10 Ml Syringe IVP 10 ml 0100,0900,1700 DESIREE Administration Objective Vital Signs/Intake & Output Reviewed Vital Signs: Yes Vital Signs: Vital Signs x48h Temp Pulse Pulse Resp BP Pulse Ox 11/26/24 11:31 36.6 C 65 16 145/80 H 98 11/26/24 09:24 36.7 C 65 18 137/68 H 98 11/26/24 03:58 37 C 61 20 127/77 99 Intake & Output: Intake & Output 11/23/24 11/24/24 11/25/24 11/26/24 23:59 23:59 23:59 23:59 Intake Total 1240 / 1240 250 / 250 Balance 1240 / 1240 250 / 250 Weight (kg) 76 kg Objective General Appearance: positive No acute distress and Alert Eyes Bilateral: positive Normal inspection and PERRL ENT: positive ENT inspection nml and Pharynx nml Neck: positive Nml inspection Respiratory: positive Chest non-tender and No respiratory distress Cardiovascular: positive Regular rate & rhythm and No murmur Abdomen: positive Non-tender Back: positive Nml inspection Skin: positive Color nml Extremities: positive Non-tender Neurologic/Psychiatric: positive Oriented x3 Lab Results 11/26/24 04:35 11/26/24 04:35 Other Labs: Lab Results x24hrs 11/26/24 11/25/24 11/25/24 Range/Units 04:35 21:29 20:00 WBC 3.3 L (4.8-10.8) x10^3/uL RBC 4.96 (4.70-6.10) 10^6/uL Hgb 13.4 L (14.0-18.0) g/dL Hct 42.6 (42.0-52.0) % MCV 85.9 (80.0-94.0) fL MCH 27.0 (27.0-31.0) pg MCHC 31.5 L (32.0-36.0) g/dL RDW 14.1 (12.0-15.0) % Plt Count 160 (130-450) 10^3/uL MPV 10.0 (7.4-11.4) fL Neut # (Auto) 1.1 L (1.5-6.6) 10^3/uL Lymph # (Auto) 1.5 (1.5-3.5) 10^3/uL [place] # (Auto) 0.6 (0.0-1.0) 10^3/uL Eos # (Auto) 0.2 (0.0-0.7) 10^3/uL Baso # (Auto) 0.0 (0.0-0.1) 10^3/uL Absolute Nucleated RBC 0.00 x10^3/uL Nucleated RBC % 0.0 /100WBC VBG Total Hgb (14.0-17.8) g/dL VBG Oxyhemoglobin (94-97) % VBG Carboxyhemoglobin (0-1.5) % VBG Methemoglobin (<0.3-1.5) % Sodium 139 (135-145) mmol/L Potassium 4.1 (3.5-4.5) mmol/L Chloride 110 (101-111) mmol/L Carbon Dioxide 23 (21-32) mmol/L Anion Gap 6.0 (6-13) BUN 13 (6-20) mg/dL Creatinine 0.8 (0.6-1.3) mg/dL Estimated GFR (MDRD) 96 (>89) Glucose 98 (74-104) mg/dL Lactic Acid (0.5-2.2) mmol/L Calcium 7.9 L (8.5-10.3) mg/dL Total Bilirubin (0.2-1.0) mg/dL AST (10-42) IU/L ALT (10-60) IU/L Alkaline Phosphatase (42-121) IU/L Troponin I High Sens 5.6 (2.3-19.7) ng/L B-Natriuretic Peptide (5-100) pg/mL Total Protein (6.4-8.9) g/dL Albumin (3.2-5.5) g/dL Globulin (2.1-4.2) g/dL Albumin/Globulin Ratio (1.0-2.2) Lipase (11-82) U/L Procalcitonin Immunoas (<0.5) ng/mL Urine Color YELLOW Urine Clarity CLEAR (CLEAR) Urine pH 5.5 (5.0-7.5) PH Ur Specific [place] 1.025 (1.002-1.030) Urine Protein NEGATIVE (NEGATIVE) mg/dL Urine Glucose (UA) NEGATIVE (NEGATIVE) mg/dL Urine Ketones TRACE (NEGATIVE) mg/dL Urine Occult Blood TRACE-INTA (NEGATIVE) Urine Nitrite NEGATIVE (NEGATIVE) Urine Bilirubin NEGATIVE (NEGATIVE) Urine Urobilinogen 0.2 (NORMAL) (NORMAL) E.U./dL Ur Leukocyte Esterase NEGATIVE (NEGATIVE) Ur Microscopic Review NOT INDICATED Urine Culture Comments NOT INDICATED Nasal Adenovirus (PCR) NOT DETECTED Nasal B. parapertussis DNA (PCR) NOT DETECTED Nasal Coronavir 229E PCR NOT DETECTED Nasal Coronavir HKU1 PCR NOT DETECTED Nasal Coronavir NL63 PCR NOT DETECTED Nasal Coronavir OC43 PCR NOT DETECTED Nasal Enterovir/Rhinovir PCR NOT DETECTED Nasal Influ A H1 2009 PCR DETECTED A Nasal Influenza B PCR NOT DETECTED Nasal Parainfluen 1 PCR NOT DETECTED Nasal Parainfluen 2 PCR NOT DETECTED Nasal Parainfluen 3 PCR NOT DETECTED Nasal Parainfluen 4 PCR NOT DETECTED Nasal RSV (PCR) NOT DETECTED Nasal B.pertussis DNA PCR NOT DETECTED Nasal C.pneumoniae (PCR) NOT DETECTED Arnaldo Human Metapneumo PCR NOT DETECTED Nasal M.pneumoniae (PCR) NOT DETECTED Nasal SARS-CoV-2 (PCR) NOT DETECTED Urine Opiates Screen NEGATIVE (NEGATIVE) Ur Buprenorphine Scrn NEGATIVE (NEGATIVE) Ur Oxycodone Screen NEGATIVE (NEGATIVE) Urine Methadone Screen NEGATIVE (NEGATIVE) Ur Barbiturates Screen NEGATIVE (NEGATIVE) Ur Tricyclics Screen NEGATIVE (NEGATIVE) Ur Phencyclidine Scrn NEGATIVE (NEGATIVE) Ur Amphetamine Screen NEGATIVE (NEGATIVE) U Methamphetamines Scrn NEGATIVE (NEGATIVE) U Benzodiazepines Scrn NEGATIVE (NEGATIVE) Urine Cocaine Screen NEGATIVE (NEGATIVE) U Cannabinoids Screen POSITIVE H (NEGATIVE) Ur Drug Screen Comment CUTOFF CONC BELOW: 11/25/24 11/25/24 11/25/24 Range/Units 19:15 19:12 16:25 WBC (4.8-10.8) x10^3/uL RBC (4.70-6.10) 10^6/uL Hgb (14.0-18.0) g/dL Hct (42.0-52.0) % MCV (80.0-94.0) fL MCH (27.0-31.0) pg MCHC (32.0-36.0) g/dL RDW (12.0-15.0) % Plt Count (130-450) 10^3/uL MPV (7.4-11.4) fL Neut # (Auto) (1.5-6.6) 10^3/uL Lymph # (Auto) (1.5-3.5) 10^3/uL [place] # (Auto) (0.0-1.0) 10^3/uL Eos # (Auto) (0.0-0.7) 10^3/uL Baso # (Auto) (0.0-0.1) 10^3/uL Absolute Nucleated RBC x10^3/uL Nucleated RBC % /100WBC VBG Total Hgb (14.0-17.8) g/dL VBG Oxyhemoglobin (94-97) % VBG Carboxyhemoglobin (0-1.5) % VBG Methemoglobin (<0.3-1.5) % Sodium (135-145) mmol/L Potassium (3.5-4.5) mmol/L Chloride (101-111) mmol/L Carbon Dioxide (21-32) mmol/L Anion Gap (6-13) BUN (6-20) mg/dL Creatinine (0.6-1.3) mg/dL Estimated GFR (MDRD) (>89) Glucose (74-104) mg/dL Lactic Acid 0.6 (0.5-2.2) mmol/L Calcium (8.5-10.3) mg/dL Total Bilirubin (0.2-1.0) mg/dL AST (10-42) IU/L ALT (10-60) IU/L Alkaline Phosphatase (42-121) IU/L Troponin I High Sens 6.0 (2.3-19.7) ng/L B-Natriuretic Peptide 12 (5-100) pg/mL Total Protein (6.4-8.9) g/dL Albumin (3.2-5.5) g/dL Globulin (2.1-4.2) g/dL Albumin/Globulin Ratio (1.0-2.2) Lipase (11-82) U/L Procalcitonin Immunoas < 0.05 (<0.5) ng/mL Urine Color Urine Clarity (CLEAR) Urine pH (5.0-7.5) PH Ur Specific [place] (1.002-1.030) Urine Protein (NEGATIVE) mg/dL Urine Glucose (UA) (NEGATIVE) mg/dL Urine Ketones (NEGATIVE) mg/dL Urine Occult Blood (NEGATIVE) Urine Nitrite (NEGATIVE) Urine Bilirubin (NEGATIVE) Urine Urobilinogen (NORMAL) E.U./dL Ur Leukocyte Esterase (NEGATIVE) Ur Microscopic Review Urine Culture Comments Nasal Adenovirus (PCR) Nasal B. parapertussis DNA (PCR) Nasal Coronavir 229E PCR Nasal Coronavir HKU1 PCR Nasal Coronavir NL63 PCR Nasal Coronavir OC43 PCR Nasal Enterovir/Rhinovir PCR Nasal Influ A H1 2009 PCR Nasal Influenza B PCR Nasal Parainfluen 1 PCR Nasal Parainfluen 2 PCR Nasal Parainfluen 3 PCR Nasal Parainfluen 4 PCR Nasal RSV (PCR) Nasal B.pertussis DNA PCR Nasal C.pneumoniae (PCR) Arnaldo Human Metapneumo PCR Nasal M.pneumoniae (PCR) Nasal SARS-CoV-2 (PCR) Urine Opiates Screen (NEGATIVE) Ur Buprenorphine Scrn (NEGATIVE) Ur Oxycodone Screen (NEGATIVE) Urine Methadone Screen (NEGATIVE) Ur Barbiturates Screen (NEGATIVE) Ur Tricyclics Screen (NEGATIVE) Ur Phencyclidine Scrn (NEGATIVE) Ur Amphetamine Screen (NEGATIVE) U Methamphetamines Scrn (NEGATIVE) U Benzodiazepines Scrn (NEGATIVE) Urine Cocaine Screen (NEGATIVE) U Cannabinoids Screen (NEGATIVE) Ur Drug Screen Comment 11/25/24 11/25/24 Range/Units 16:18 16:01 WBC 3.4 L (4.8-10.8) x10^3/uL RBC 5.42 (4.70-6.10) 10^6/uL Hgb 14.4 (14.0-18.0) g/dL Hct 46.1 (42.0-52.0) % MCV 85.1 (80.0-94.0) fL MCH 26.6 L (27.0-31.0) pg MCHC 31.2 L (32.0-36.0) g/dL RDW 14.1 (12.0-15.0) % Plt Count 176 (130-450) 10^3/uL MPV 10.3 (7.4-11.4) fL Neut # (Auto) 1.6 (1.5-6.6) 10^3/uL Lymph # (Auto) 1.2 L (1.5-3.5) 10^3/uL [place] # (Auto) 0.5 (0.0-1.0) 10^3/uL Eos # (Auto) 0.1 (0.0-0.7) 10^3/uL Baso # (Auto) 0.0 (0.0-0.1) 10^3/uL Absolute Nucleated RBC 0.00 x10^3/uL Nucleated RBC % 0.0 /100WBC VBG Total Hgb 15.1 (14.0-17.8) g/dL VBG Oxyhemoglobin 68 L (94-97) % VBG Carboxyhemoglobin 0.8 (0-1.5) % VBG Methemoglobin 0.3 (<0.3-1.5) % Sodium 138 (135-145) mmol/L Potassium 3.7 (3.5-4.5) mmol/L Chloride 107 (101-111) mmol/L Carbon Dioxide 23 (21-32) mmol/L Anion Gap 8.0 (6-13) BUN 17 (6-20) mg/dL Creatinine 1.2 (0.6-1.3) mg/dL Estimated GFR (MDRD) 60 L (>89) Glucose 124 H (74-104) mg/dL Lactic Acid (0.5-2.2) mmol/L Calcium 8.6 (8.5-10.3) mg/dL Total Bilirubin 0.3 (0.2-1.0) mg/dL AST 28 (10-42) IU/L ALT 20 (10-60) IU/L Alkaline Phosphatase 60 (42-121) IU/L Troponin I High Sens 5.5 (2.3-19.7) ng/L B-Natriuretic Peptide (5-100) pg/mL Total Protein 6.6 (6.4-8.9) g/dL Albumin 3.9 (3.2-5.5) g/dL Globulin 2.7 (2.1-4.2) g/dL Albumin/Globulin Ratio 1.4 (1.0-2.2) Lipase 28 (11-82) U/L Procalcitonin Immunoas (<0.5) ng/mL Urine Color Urine Clarity (CLEAR) Urine pH (5.0-7.5) PH Ur Specific [place] (1.002-1.030) Urine Protein (NEGATIVE) mg/dL Urine Glucose (UA) (NEGATIVE) mg/dL Urine Ketones (NEGATIVE) mg/dL Urine Occult Blood (NEGATIVE) Urine Nitrite (NEGATIVE) Urine Bilirubin (NEGATIVE) Urine Urobilinogen (NORMAL) E.U./dL Ur Leukocyte Esterase (NEGATIVE) Ur Microscopic Review Urine Culture Comments Nasal Adenovirus (PCR) Nasal B. parapertussis DNA (PCR) Nasal Coronavir 229E PCR Nasal Coronavir HKU1 PCR Nasal Coronavir NL63 PCR Nasal Coronavir OC43 PCR Nasal Enterovir/Rhinovir PCR Nasal Influ A H1 2009 PCR Nasal Influenza B PCR Nasal Parainfluen 1 PCR Nasal Parainfluen 2 PCR Nasal Parainfluen 3 PCR Nasal Parainfluen 4 PCR Nasal RSV (PCR) Nasal B.pertussis DNA PCR Nasal C.pneumoniae (PCR) Arnaldo Human Metapneumo PCR Nasal M.pneumoniae (PCR) Nasal SARS-CoV-2 (PCR) Urine Opiates Screen (NEGATIVE) Ur Buprenorphine Scrn (NEGATIVE) Ur Oxycodone Screen (NEGATIVE) Urine Methadone Screen (NEGATIVE) Ur Barbiturates Screen (NEGATIVE) Ur Tricyclics Screen (NEGATIVE) Ur Phencyclidine Scrn (NEGATIVE) Ur Amphetamine Screen (NEGATIVE) U Methamphetamines Scrn (NEGATIVE) U Benzodiazepines Scrn (NEGATIVE) Urine Cocaine Screen (NEGATIVE) U Cannabinoids Screen (NEGATIVE) Ur Drug Screen Comment Assessment/Plan Problem List (1) Syncope and collapse: Impression: UDS positive for marijuana but no other drugs Flu positive CT head, CXR, EKG unremarkable Troponin negative x 2 I have ordered echocardiogram, he needs this done before he can discharge No significant events on telemetry, May DC Feeling better after IV fluid bolus in the ER UA clear Procalcitonin negative (2) History of asthma: Impression: DuoNeb 4 times daily RT as needed Not in acute flare (3) Groin pain: Impression: Reports inguinal hernia, has not followed up with a surgeon about this Pelvic ultrasound performed, awaiting read Will likely need outpatient follow-up (4) Influenza A: Impression: Outside Tamiflu window On room air Droplet precautions Tylenol as needed
--- NOTE | 2024-11-26 13:18 | PHARMACY PROGRESS NOTE ---
Best Possible Medication History Admit Date and Time: 11/26/24 1145 Home Medications Medication Instructions Recorded Confirmed Type ibuprofen 200 mg tablet (Advil) 200 - 400 mg PO Q8H PRN pain 11/26/24 11/26/24 History Processed by: Pharmacy Medications reviewed in ED?: No Medication History completed: Yes Patient Interview: Pt interview ONLY source [facility] Statement: As the person ultimately responsible for medication therapy, providers are able to order a medication from an existing home medication list in [facility] via the "Reconcile Routine" prior to Confirmation of that medication by other sales support worker. Such practice is discouraged except when the physician, in their clinical judgment, deems that a medical need exists for a medication without regard to previous use.
--- NOTE | 2024-11-26 14:39 | Ultrasound Report ---
PROCEDURE: US Pelvic Limited INDICATIONS: Eval inguinal hernia TECHNIQUE: Real-time transabdominal scanning was performed of the pelvic organs, with image documentation. COMPARISON: None. FINDINGS: Sonographic images demonstrate a right inguinal hernia containing both fat and bowel within a 4.6 cm defect. There appears to be extension into the right scrotum. No reducibility at time of exam. IMPRESSION: Fat and bowel containing hernia extending into the scrotum on the right. Reviewed by: Peggy Goldsmith MD on 11/26/2024 2:38 PM PDT Approved by: Peggy Goldsmith MD on 11/26/2024 2:38 PM PDT Station ID: [id number]
[2024-11-26] MEDS ORDERED: BENZONATATE 100 MG CAPSULE PO PRN (19:10)
[2024-11-26] MEDS: guaiFENesin/DEXTROMETHORPHAN 10 ML UDC PO PRN (19:38)
[2024-11-27 05:51] LABS: BASOPHILS % (AUTO) 0.6 %; EOSINOPHILS % (AUTO) 3.9 %; HCT - HEMATOCRIT 43.4 % (42.0-52.0); HGB - HEMOGLOBIN 14.1 g/dL (14.0-18.0); LYMPHOCYTES % (AUTO) 48.3 %; MEAN CORPUSCULAR HEMOGLOBIN 27.7 pg (27.0-31.0); MEAN CORPUSCULAR HGB CONC 32.5 g/dL (32.0-36.0); MEAN CORPUSCULAR VOLUME 85.3 fL (80.0-94.0); MONOCYTES % (AUTO) 12.9 %; NEUTROPHILS % (AUTO) 34.3 %; PLT - PLATELET COUNT 171 10^3/uL (130-450); RED BLOOD COUNT 5.09 10^6/uL (4.70-6.10); RED CELL DISTRIBUTION WIDTH 13.7 % (12.0-15.0); WHITE BLOOD COUNT 3.6 x10^3/uL (4.8-10.8)
[2024-11-27 05:56] LABS: ABNORMAL LYMPHS % (MANUAL) 0 %
[2024-11-27 05:59] LABS: CALCIUM 8.2 mg/dL (8.5-10.3); CREATININE 0.9 mg/dL (0.6-1.3)
[2024-11-27 06:26] LABS: BAND NEUTROPHILS % (MANUAL) 1 %; EOSINOPHILS # (MANUAL) 0.1 10^3/uL (0-0.7); LYMPHOCYTES # (MANUAL) 1.6 10^3/uL (1.5-3.5); LYMPHOCYTES % (MANUAL) 45 %; MONOCYTES # (MANUAL) 0.5 10^3/uL (0.0-1.0); NEUTROPHILS # (MANUAL) 1.4 10^3/uL (1.5-6.6); PLATELET ESTIMATE, MANUAL NORMAL (130-450,000) (NORMAL); PLATELET MORPHOLOGY NORMAL APPEARANCE (NORMAL); RBC MORPHOLOGY (MULTIPLE) NORMAL APPEARANCE (NORMAL); WBC MORPHOLOGY (MULTIPLE) NORMAL APPEARANCE (NORMAL)
[2024-11-27 06:27] LABS: DIFFERENTIAL COMMENT MANUAL DIFFERENTIAL
[2024-11-27 13:46] VITALS: BP 148/76; TEMP 97.9; O2SAT 97
--- NOTE | 2024-11-27 14:03 | Discharge Summary ---
Discharge Summary Admit Date: 11/25/24 Discharge Date: 11/27/24 Discharging Provider: Oscar Guidry NP Primary Care Provider: None Code Status: Attempt Resuscitation DIAGNOSES Admission Diagnoses: Syncope and collapse History of asthma Right groin pain Discharge Diagnoses with Status of Each Condition: Syncope and collapseresolved History of asthmachronic Right groin pain- Hernia confirmed by ultrasound, referral to surgery HPI History of Present Illness: 69-year-old male PMH glaucoma and inguinal hernia who was outside [facility] when he had chest pain and collapsed. He reports fevers and chills for the past 3 days, but says that he has been fairly stable with this and able to tolerate p.o. intake. He reports history of frequent dental infections, saying that he manages this with oral peroxide. He states that he had total syncope and his first episode and then had severe near syncope twice while attempting to get up. He was helped back into the house by his dog In the ER, chest x-ray and EKG were performed which showed no acute abnormality. Head CT also showed no acute abnormality. Lab work was overall unremarkable, WBC 3.4, no significant chemistry abnormalities. VBG was performed which showed oxyhemoglobin of 68%. Troponin negative. Hospitalist was contacted for observation for syncope HOSPITAL COURSE Hospital Course: He was admitted into the hospital and placed on telemetry. Respiratory virus panel showed influenza A. He was outside the window for Tamiflu, but his symptoms improved after a IV fluid bolus. Echo was not available over the weekend, so he is being discharged home with a rapid follow-up with a new PCP. He will need outpatient echocardiogram and surgical referral for his inguinal hernia Of note, pelvic ultrasound was performed which showed fat and bowel containing hernia extending into the scrotum on the right, not reducible at time of exam. I discussed the case with the on-call surgeon, who recommends fairly urgent follow-up with general surgery or to present to the emergency department if symptoms worsen. I called the patient at home and informed him of this ALLERGIES Allergies Allergy/AdvReac Type Severity Reaction Status Date / Time Penicillins Allergy Unknown Verified 07/01/24 08:18 Tetracyclines Allergy Itching Verified 07/01/24 08:18 MEDICATIONS Ambulatory Orders Medication Instructions Recorded Confirmed ibuprofen 200 mg tablet (Advil) 200 - 400 mg PO Q8H PRN pain 11/26/24 11/26/24 PHYSICAL EXAM AT DISCHARGE General Appearance: positive No acute distress and Alert Eyes Bilateral: positive Normal inspection and PERRL ENT: positive ENT inspection nml Neck: positive Nml inspection Respiratory: positive Chest non-tender Cardiovascular: positive Regular rate & rhythm Peripheral Pulses: positive 2+ Abdomen: positive Non-tender Back: positive Nml inspection Skin: positive Color nml Extremities: positive Non-tender Neurologic/Psychiatric: positive Oriented x3 LABS 11/27/24 05:30 11/27/24 05:30 DIAGNOSTIC IMAGING Diagnostic Imaging Results: Final report reviewed Diagnostic Imaging Results Comments: Pelvic ultrasound FOLLOW UP Follow Up: With PCP, general surgery TIME SPENT Time Spent in Discharge (Minutes): 35 Discharge Plan Discharge Patient Disposition: Home, Self Care Prescriptions: Continued ibuprofen [Advil] 200 mg tablet 200 - 400 mg PO Q8H PRN (Reason: pain) Health Concerns: You came into the hospital because you passed out at home 3 times. Your workup was significant for influenza A. You were given IV fluid resuscitation which improved some of the symptoms of malaise you have been having. I would recommend you undergo echocardiogram, but we do not have that available so we are working to set you up with a primary care provider who can follow this up outpatient. While you are sick with the flu, I would recommend that you avoid strenuous work for the next few days while you recover. Please drink plenty of water, eat a full regular diet. I would like for you to establish yourself with a primary care provider, as they will handle referrals to surgeons for your inguinal hernia and they will be responsible for ordering and following up on your echocardiogram Print Language: Iraqi Patient Instructions: Syncope, Syncope Causes, Dizziness Fainting Poss Causes, Dizziness Fainting Ch Stand Alone Forms: PCP List
== END 2024-11-27 14:05 | disposition home or self-care (01) | DRG 312 ==
LOC: MS2 15:44 → ED 15:44 → MS2 20:10
PROVIDERS: ADMIT Nurse Practitioner Acute Care; ATTEND Nurse Practitioner Acute Care
DX: R07.9 Chest pain, unspecified; R00.2 Palpitations; R55 Syncope and collapse; K40.90 Unilateral inguinal hernia, without obstruction or gangrene, not specified as recurrent; J10.1 Influenza due to other identified influenza virus with other respiratory manifestations; H40.9 Unspecified glaucoma; J45.909 Unspecified asthma, uncomplicated; R42 Dizziness and giddiness; R11.0 Nausea; Z79.899 Other long term (current) drug therapy